=== PATIENT | female | born 1945 | race Caucasian/White ===

== ENCOUNTER 2019-05-04 14:55 | Emergency (ER) | payer MEDICARE, BC ==
[~2019-05-04] VITALS: Ht 160 cm; Wt 64.9 kg
[2019-05-04] MEDS ORDERED: SUBVENITE200 MG PO (15:58)
[2019-05-04] MEDS ORDERED: FURO40 (15:58)
[2019-05-04] MEDS ORDERED: Zantac150 MG PO (15:58)
[2019-05-04] MEDS ORDERED: Potassium Chlo20 ME1 PO (15:58)
[2019-05-04] MEDS ORDERED: HYDCHL25 PO (15:58)
[2019-05-04] MEDS ORDERED: LOSARTAN POTAS100 MG PO (15:59)
[2019-05-04] MEDS ORDERED: LEVO-T112 MCG PO (15:59)
[2019-05-04] MEDS ORDERED: ATORVASTATIN CA40 MG PO (15:59)
[2019-05-04] MEDS ORDERED: IRBESARTAN300 MG PO (15:59)
[2019-05-04] MEDS ORDERED: ZONI100 (15:59)
[2019-05-04] MEDS ORDERED: Nifediac Cc60 MG PO (15:59)
[2019-05-04] MEDS ORDERED: TEMA30 PO (15:59)
== END 2019-05-04 17:28 | disposition home or self-care (01) ==
LOC: ER 14:55
DX: I10 Essential (primary) hypertension (principal); Z79.899 Other long term (current) drug therapy
CPT/HCPCS: 36415; 71046; 83880; 85025; 93005; 93010; 99283-25

== ENCOUNTER 2020-02-16 11:11 | Day surgery (SDC) | payer MEDICARE, BC ==
[~2020-02-16] VITALS: Ht 157.5 cm; Wt 62.0 kg
[~2020-02-16 11:11] MED LIST: ATORVASTATIN CA40 MG PO; CARV6.25 PO; FURO40; HYDCHL25 PO; IRBESARTAN300 MG PO; LEVO-T112 MCG PO; LOSARTAN POTAS100 MG PO; Nifediac Cc60 MG PO; Potassium Chlo20 ME1 PO; SUBVENITE200 MG PO; TEMA30 PO; ZONI100; Zantac150 MG PO
--- NOTE | 2020-02-16 11:53 | NUR ---
02/16/20 1153 GISELE MOONEY ONE ATTEMPT BY TRAVIS IN RW HIT A VALVE ONE SUCCEFUL IN RH BY TRAVIS PT TOW
[2020-03-28] MEDS ORDERED: FUROSEMIDE40 MG PO (17:04)
[2020-03-28] MEDS ORDERED: ZONI100 PO (17:04)
[2020-03-28] MEDS ORDERED: Temazepam30 MG PO (17:05)
[2020-03-28] MEDS ORDERED: LAMICTAL200 MG PO (17:05)
[2020-03-28] MEDS ORDERED: DYAZIDE 37.5-21 EACH PO (17:06)
[2020-03-28] MEDS ORDERED: SPIRONOLACTONE25 MG PO (17:06)
[2020-03-28] MEDS ORDERED: ATOR40TA PO (17:06)
[2020-03-28] MEDS ORDERED: Vitamin D2000 UNIT PO (17:08)
[2020-03-28] MEDS ORDERED: ATOR20 PO (21:14)
[2020-03-28] MEDS ORDERED: OMEP20ER PO (21:16)
[2020-03-29] MEDS ORDERED: NAPR500 PO (08:52)
[2020-03-29] MEDS ORDERED: CYCL10 PO (08:53)
[2020-03-29] MEDS ORDERED: ONDA4ODT MM (08:55)
[2020-03-29] MEDS ORDERED: CARV6.25 PO (09:00)
[2020-03-29] MEDS ORDERED: Isosorbide Mono30 MG PO (09:01)
[2020-03-29] MEDS ORDERED: SPIR25 PO (09:02)
[2020-03-29] MEDS ORDERED: IRON PO (09:08)
[2020-03-29] MEDS ORDERED: OMEP20ER PO (09:11)
[2020-03-29] MEDS ORDERED: TRAM50 PO (12:42)
[2020-04-01] MEDS ORDERED: PANT40 PO (11:49)
[2020-04-01] MEDS ORDERED: OXYC1L PO (11:52)
[2020-04-01] MEDS ORDERED: LOSA25 PO (11:53)
[2020-04-01] MEDS ORDERED: ATOR80 PO (11:53)
[2020-04-01] MEDS ORDERED: SENN187 PO (11:54)
[2020-04-01] MEDS ORDERED: SUCR1 PO (11:54)
[2020-04-01] MEDS ORDERED: COLACE100 MG PO (11:54)
== END 2020-02-16 14:16 | disposition home or self-care (01) ==
LOC: ORSCSDS 11:11
PROVIDERS: Student in an Organized Health Care Education/Training Program
PROC: 0DB98ZX Excision of Duodenum, Via Natural or Artificial Opening Endoscopic, Diagnostic (ICD-10-PCS; principal; 2020-02-16 13:45)
PROC: 0DB58ZX Excision of Esophagus, Via Natural or Artificial Opening Endoscopic, Diagnostic (ICD-10-PCS; principal; 2020-02-16 13:45)
PROC: 0W3P8ZZ Control Bleeding in Gastrointestinal Tract, Via Natural or Artificial Opening Endoscopic (ICD-10-PCS; principal; 2020-02-16 13:45)
PROC: 0DB68ZX Excision of Stomach, Via Natural or Artificial Opening Endoscopic, Diagnostic (ICD-10-PCS; principal; 2020-02-16 13:45)
DX: D64.9 Anemia, unspecified (principal); K25.4 Chronic or unspecified gastric ulcer with hemorrhage; R10.13 Epigastric pain; I10 Essential (primary) hypertension; Z87.11 Personal history of peptic ulcer disease; E03.9 Hypothyroidism, unspecified; G40.909 Epilepsy, unspecified, not intractable, without status epilepticus; Z79.899 Other long term (current) drug therapy; K44.9 Diaphragmatic hernia without obstruction or gangrene
CPT/HCPCS: 88305; 88341; 88342; J0171; J2250; J2704; J7120

== ENCOUNTER 2020-05-30 10:45 | Emergency (ER) | payer MEDICARE, BC ==
[~2020-05-30] VITALS: Ht 160 cm; Wt 58.5 kg
[~2020-05-30 10:45] MED LIST changes: +ATOR20 PO; +ATOR40TA PO; +ATOR80 PO; +COLACE100 MG PO; +CYCL10 PO; +DYAZIDE 37.5-21 EACH PO; +FUROSEMIDE40 MG PO; +IRON PO; +Isosorbide Mono30 MG PO; +LAMICTAL200 MG PO; +LOSA25 PO; +NAPR500 PO; +OMEP20ER PO; +ONDA4ODT MM; +OXYC1L PO; +PANT40 PO; +SENN187 PO; +SPIR25 PO; +SPIRONOLACTONE25 MG PO; +SUCR1 PO; +TRAM50 PO; +Temazepam30 MG PO; +Vitamin D2000 UNIT PO; +ZONI100 PO
[2020-05-30] MEDS ORDERED: POTA20LUD PO (11:28)
[2020-05-30] MEDS ORDERED: Voltaren100 GM TOP (13:19)
[2020-05-30] MEDS ORDERED: Percocet 5-3251 EACH PO (13:24)
[2020-05-30] MEDS ORDERED: DOC250 PO (13:24)
== END 2020-05-30 14:05 | disposition home or self-care (01) ==
LOC: ER 10:45
DX: M79.652 Pain in left thigh (principal); I10 Essential (primary) hypertension; Z88.8 Allergy status to other drugs, medicaments and biological substances; Z88.5 Allergy status to narcotic agent; Z79.899 Other long term (current) drug therapy; W01.0XXA Fall on same level from slipping, tripping and stumbling without subsequent striking against object, initial encounter
CPT/HCPCS: 72192; 93971; 99283-25; A9270-GY

== ENCOUNTER 2021-02-26 05:28 | Inpatient (IN) | payer MEDICARE, BC ==
[~2021-02-26] VITALS: Ht 157.5 cm; Wt 61.5 kg
[~2021-02-26 05:28] MED LIST changes: +DOC250 PO; +FEROSUL325 M1 PO; -IRON PO; +NORCO 7.5-3251 EAC3 PO; +POTA20LUD PO; +Percocet 5-3251 EACH PO; +Voltaren100 GM TOP
[2021-02-26 05:58] LABS: Mean Corpuscular HGB 26.9 pg (26.0-34.0); Mean Corpuscular HGB Conc 30.5 g/dL (31.5-36.5); Mean Corpuscular Volume 88 fL (80-100); Mean Platelet Volume 9.3 fL (9.1-12.4); Platelet Count 272 K/mm3 (150-400); RDW Coefficient Variation 20.1 % (11.7-14.2); RDW Standard Deviation 62.2 fL (35.1-46.3); Red Blood Cell Count 1.86 M/mm3 (3.80-5.20); White Blood Cell Count 10.69 K/mm3 (4.00-11.30)
[2021-02-26 05:59] LABS: BASOPHILS ABSOLUTE AUTO 0.01 K/mm3 (0.00-0.23); BASOPHILS PERCENT AUTO 0 % (0-2); EOSINOPHILS ABSOLUTE AUTO 0.03 K/mm3 (0.00-0.68); EOSINOPHILS PERCENT AUTO 0 % (0-6); IMMATURE GRAN PERCENT AUTO 4 % (0-1); LYMPHOCYTES PERCENT AUTO 14 % (21-46); MONOCYTES ABSOLUTE AUTO 0.41 K/mm3 (0.16-1.47); MONOCYTES PERCENT AUTO 4 % (4-13); NEUTROPHILS ABSOLUTE AUTO 8.21 K/mm3 (1.96-9.15); NEUTROPHILS PERCENT AUTO 78 % (41-73); NRBC ABSOLUTE 0.06 K/mm3 (0.00-0.02); NRBC Auto 0.6 /100 WBC (0.0-0.2)
[2021-02-26 06:02] LABS: Hematocrit 16.4 % (33.0-51.0)
[2021-02-26 06:03] LABS: Source, Urine Catheter
[2021-02-26 06:14] LABS: Appearance, Urine Clear (Clear); Bilirubin, Urine Neg (Neg); Blood, Urine Neg (Neg); Color, Urine Yellow (P-Yellow); Glucose Qualitative, Urine Neg (Neg); Ketones, Urine Neg (Neg); Leukocyte Esterase, Urine Neg (Neg); Nitrite, Urine Neg (Neg); Protein, Urine 1+ (Neg); Specific Gravity, Urine 1.015 (1.003-1.022); Urobilinogen, Urine NORM (Normal)
[2021-02-26 06:31] LABS: Albumin, Blood 1.8 g/dL (3.4-5.0); Albumin/Globulin Ratio 0.6 (0.8-1.8); Bilirubin, Total 0.6 mg/dL (0.1-1.0); Bun/Creatinine Ratio 16.1 (12.0-20.0); Calcium, Blood 8.1 mg/dL (8.5-10.1); Creatinine, Blood 1.43 mg/dL (0.40-1.00); Globulin, Blood 2.9 g/dL (2.2-4.0); Potassium, Blood 3.9 mmol/L (3.5-5.5); Total Protein, Blood 4.7 g/dL (6.4-8.2); Troponin I 0.495 ng/mL (0.000-0.040)
[2021-02-26] MEDS ORDERED: DOCU100 PO ×2 (06:35→13:51)
[2021-02-26] MEDS ORDERED: Acetaminophen325 M1 PO (08:55)
[2021-02-26] MEDS ORDERED: Fleet Enema132 ML PR (08:56)
[2021-02-26] MEDS ORDERED: Norco 5-325 Ta1 EACH PO (08:56)
[2021-02-26] MEDS ORDERED: ENOX40I SC (08:57)
--- NOTE | 2021-02-26 13:38 | NUR ---
INITIAL ASSESSMENT: REPORT RECIEVED FROM [facility] ED RN. PT ARRIVED TO PCU 2 VIA GURNEY, SHE WAS SLID OVER TO THE BED WITH 4 PEOPLE AND A SLIDER SHEET. PT IS CONFUSED, BUT EASILY REORIENTED. PT REPORTS 5/10 RIGHT HIP PAIN, SHE IS REFUSING PAIN MEDICATIONS AT THIS TIME. HRR, SR IN THE 90S PER TELEMETRY. PT HAS SOME FINE CRACKLES IN HER BASES, BIOX LOW 90S ON RA. BT+. ATTENDS IN PLACE. PPP. PT HAS TRACE PITTING EDEMA TO RLE. VSS. AT BEDSIDE TO ASSIST WITH ADMISSION HX AND MEDICATION RECONCILATION. PT HAS INCISION FROM HIP PINNING TO RIGHT HIP, 3M DRESSING IN PLACE WITH A MODERATE AMOUNT OF SERRO SANG DRAINAGE ON IT AND THE ELLIS PAD UNDERNEATH HER. DRESSING CHANGED AND AQUACEL PLACED. PT AND ORIENTED TO ROOM AND CALL LIGHT, WILL CONTINUE TO MONITOR.
[2021-02-26] MEDS ORDERED: Acetaminophen650 M1 PO (13:50)
[2021-02-26] MEDS ORDERED: THERA-D2000 UNIT PO (13:55)
[2021-02-26 15:16] LABS: Hematocrit 25.8 % (33.0-51.0); Hemoglobin 8.4 g/dL (11.5-16.0)
[2021-02-26 15:37] LABS: International Normalized Ratio 1.22
--- NOTE | 2021-02-26 16:00 | NUR ---
PTS TROPONIN CAME BACK AT 17.0, LEASE OUT WORKER CRISTA AWARE. SEE NEW ORDERS. PT DENIES CP OR SOB AT THIS TIME, NO CHANGES ON TELEMETRY, WILL CONTINUE TO MONITOR.
--- NOTE | 2021-02-26 17:00 | NUR ---
KRYSTAL TOBIN AT BEDSIDE TO DISCUSS CODE STATUS WITH AND PTS CURRENT DISEASE PROCESS. PTS WOULD LIKE TO DISCUSS THIS WITH FAMILY BEFORE MAKING A DECISION. ROAD OILING TRUCK DRIVER AT BEDSIDE. PT HAS BEEN RESTLESS. BLADDER SCAN DONE DUE TO PATIENT NOT VOIDING YET, GREATER THAN 600CC. ASSISTED PT OOB TO THE BSC WITH PIVOT TRANSFER. PT WAS UNABLE TO VIOD. PT ASSISTED BACK TO BED. SOLIMAN PLACED PER MD ORDERS. UA SENT.
[2021-02-26 18:42] LABS: Source, Urine Catheter
[2021-02-26 18:50] LABS: Appearance, Urine Clear (Clear); Bilirubin, Urine Neg (Neg); Blood, Urine 1+ (Neg); Color, Urine Yellow (P-Yellow); Glucose Qualitative, Urine Neg (Neg); Ketones, Urine 1+ (Neg); Leukocyte Esterase, Urine 2+ (Neg); Nitrite, Urine Neg (Neg); Protein, Urine 2+ (Neg); Urobilinogen, Urine NORM (Normal); pH, Urine 6.5 (5.0-8.0)
[2021-02-26 19:06] LABS: Bacteria Mod /hpf; Red Blood Cells, Urine 0-2 /hpf (0-2); Squamous Epithelial Cells Few /hpf (Few)
--- NOTE | 2021-02-26 20:07 | NUR ---
PT ADMITTED FOR ANEMIA AND BLOOD LOSS. H/H IMPROVED TO 8/25 AFTER 2 UNITS PRBCS. RECENT RIGHT HIP FX WITH PINNING, DRESSING CHANGED. DR. DEL RIO CAME TO SEE THE PATIENT, SAID THE HIP LOOKS GOOD AND SHE CAN FOLLOW UP WITH DR. HEWITT AN OUTPATIENT SCHEDULED IF SHE'S OUT OF THE HOSPITAL IN TIME. PTS TROPONIN IS ELEVATED AT 17, PLAN FOR MEDICAL MANAGEMENT UNTIL PT IS MORE STABLE. GI HAS BEEN CONSULTED, NO PLANS FOR SCOPE AT THIS TIME. VSS. SOLIMAN PLACED FOR URINARY RETENTION. PT IS RESTING COMFORTABLY AT THIS TIME. CALL LIGHT IN REACH. BED ALARM ON FOR SAFETY.
[2021-02-26 21:13] LABS: Hematocrit 24.9 % (33.0-51.0); Hemoglobin 8.1 g/dL (11.5-16.0)
[2021-02-27 04:14] LABS: Hematocrit 23.8 % (33.0-51.0); Hemoglobin 7.6 g/dL (11.5-16.0); Mean Corpuscular HGB Conc 31.9 g/dL (31.5-36.5); Mean Corpuscular Volume 88 fL (80-100); Mean Platelet Volume 9.7 fL (9.1-12.4); NRBC Auto 1.1 /100 WBC (0.0-0.2); Platelet Count 240 K/mm3 (150-400); RDW Coefficient Variation 17.6 % (11.7-14.2); RDW Standard Deviation 53.4 fL (35.1-46.3); Red Blood Cell Count 2.71 M/mm3 (3.80-5.20)
[2021-02-27 04:38] LABS: Albumin, Blood 1.8 g/dL (3.4-5.0); Albumin/Globulin Ratio 0.7 (0.8-1.8); Bilirubin, Total 0.8 mg/dL (0.1-1.0); Bun/Creatinine Ratio 14.8 (12.0-20.0); Creatinine, Blood 1.15 mg/dL (0.40-1.00); Globulin, Blood 2.7 g/dL (2.2-4.0); Magnesium, Blood 2.2 mg/dL (1.6-2.4); Potassium, Blood 3.6 mmol/L (3.5-5.5); Total Protein, Blood 4.5 g/dL (6.4-8.2)
[2021-02-27 05:27] LABS: BASOPHILS PERCENT MAN 0 % (0-2); EOSINOPHILS PERCENT MAN 0 % (0-6); TOTAL CELLS COUNTED 100
--- NOTE | 2021-02-27 05:27 | NUR ---
SHIFT SUMMARY ASSUMED CARE OF PT AT 1900. PT IS A/OX1. HEART SOUNDS IRREGULAR, TELE SHOUS SINUS @ 96. LUNG SOUNDS CLEAR. PT HAS A SOLIMAN CATHETER DRAINING WITH CLEAR YELLOW URINE. PT L HIP DRESSING HAS A SMALL AMOUNT OF DARK COLORING SHOWING THROUGH THAT HAS GROWN TO ABOUT A QURTER SIZE IN TWO PLACES. PT DENIES PAIN. PT SELT T/O THE NIGHT. CALL LIGHT IN REACH, BED IN LOWEST POSTION, BED ALARM ON.
[2021-02-27 05:29] LABS: LYMPHOCYTES ABSOLUTE MAN 0.27 K/mm3 (0.84-5.20); LYMPHOCYTES PERCENT MAN 3 % (21-46); MONOCYTES ABSOLUTE MAN 0.18 K/mm3 (0.16-1.47); MONOCYTES PERCENT MAN 2 % (4-13); MYELOCYTE ABSOLUTE MAN 0.27 K/mm3 (0.00-0.00); MYELOCYTE PERCENT MAN 3 % (0-0); NEUTROPHILS ABSOLUTE MAN 8.46 K/mm3 (1.96-9.15); SEG NEUTROPHILS PERCENT MAN 92 % (41-73)
--- NOTE | 2021-02-27 10:11 | NUR ---
pt c/o sharp pain localized on right lower anterior rib cage. States worse with inspiration and with moving around. Given Fentanyl for pain, which helped until she was needing to roll back and forth in bed for linen change and pericare, then it was hurting again. States still worse with inspiration and with activity. States 6/10.
--- NOTE | 2021-02-27 12:46 | NUR ---
Reported to Dr. Chapman the pt's c/o sharp pain on the right anterior lower rib cage. No new orders. Pt tele dc'd and status changed to surgical.
[2021-02-27 14:08] LABS: Stool Occult Blood Guaiac 1 Neg (Neg)
--- NOTE | 2021-02-27 14:34 | NUR ---
Call to pharmacy to inquire about missing IV Ferr which is still undelivered. Telephone report to Sis in surgical unit. Pt will be transferring to room 210 this afternoon.
--- NOTE | 2021-02-27 15:36 | NUR ---
TRANSFER PT TRANSFERRED TO ROOM 210 FROM PCU. PT IS A/O X3-4 AT THIS TIME. BED ALARM PLACED FOR SAFETY. PT TRANSFERRED WTIH STAND-PIVOT FROM WHEELCHAIR TO BED USING GAIT BELT. SIGNIFICANT OTHER AT BEDSIDE. PALLIATIVE CARE AT BEDSIDE TO SPEAK WITH PT AND S.O. CALL LIGHT GIVEN TO PT.
--- NOTE | 2021-02-27 15:50 | NUR ---
Pt resting in bed upon arrival. Pt is A&OX3. Pt still struggling remembering reason for coming to the hospital. Pt reports mild to moderate pain in her right lower ribs. SO Antwon is at bedside and reports Pt having some broken ribs from a previous fall. Pt reports mild dyspnea due to inability to take deep breaths due to the pain. Pt denies anxiety at this time. Engaged in therapeutic discussion regarding code status. Educated on life sustaining treatments including risk factors and implications of CPR. Offered therapeutic listening and answered questions. Pt reports not wanting CPR or intubation. She reports if her heart stops she would prefer to go naturally. SO Antwon is in agreement with Pt's decision. RN Rozina in to insert PICC and this RN ended visit. Pt agreeable for continued PC visits. Spoke with Dr Chapman and discussed case. Changed Pt's code status to DNR per V/O from Dr Chapman. Palliative Care will remain available for supportive visits.
--- NOTE | 2021-02-27 18:03 | NUR ---
SHIFT SUMMARY PT TRANSFERRED TO THIS UNIT THIS AFTERNOON. SHE HAS BEEN A/O X4, STAND-PIVOT TO TRANSFER. POWERGLIDE WAS PLACED THIS AFTERNOON IN LEFT ARM. AQUACEL DRESSINGS TO RECENT SURGICAL SITE ON HIP DRY AND INTACT; SM AMT DRY DRAINAGE ON DRESSINGS. BED ALARM ON FOR ADDITIONAL SAFETY AND CALL LIGHT IN REACH.
[2021-02-28 05:18] LABS: BASOPHILS ABSOLUTE AUTO 0.04 K/mm3 (0.00-0.23); BASOPHILS PERCENT AUTO 0 % (0-2); EOSINOPHILS ABSOLUTE AUTO 0.08 K/mm3 (0.00-0.68); EOSINOPHILS PERCENT AUTO 1 % (0-6); Hematocrit 27.1 % (33.0-51.0); Hemoglobin 8.5 g/dL (11.5-16.0); IMMATURE GRAN ABSOLUTE AUTO 0.51 K/mm3 (0.00-0.10); IMMATURE GRAN PERCENT AUTO 5 % (0-1); LYMPHOCYTES ABSOLUTE AUTO 1.02 K/mm3 (0.84-5.20); LYMPHOCYTES PERCENT AUTO 11 % (21-46); MONOCYTES ABSOLUTE AUTO 0.46 K/mm3 (0.16-1.47); MONOCYTES PERCENT AUTO 5 % (4-13); Mean Corpuscular HGB 27.8 pg (26.0-34.0); Mean Corpuscular HGB Conc 31.4 g/dL (31.5-36.5); Mean Corpuscular Volume 89 fL (80-100); Mean Platelet Volume 9.1 fL (9.1-12.4); NEUTROPHILS ABSOLUTE AUTO 7.42 K/mm3 (1.96-9.15); NEUTROPHILS PERCENT AUTO 78 % (41-73); NRBC ABSOLUTE 0.04 K/mm3 (0.00-0.02); NRBC Auto 0.4 /100 WBC (0.0-0.2); Platelet Count 290 K/mm3 (150-400); RDW Coefficient Variation 18.1 % (11.7-14.2); RDW Standard Deviation 55.9 fL (35.1-46.3); Red Blood Cell Count 3.06 M/mm3 (3.80-5.20); White Blood Cell Count 9.53 K/mm3 (4.00-11.30)
[2021-02-28 05:39] LABS: BAND PERCENT MAN 1 % (0-8); BASOPHILS PERCENT MAN 0 % (0-2); EOSINOPHILS PERCENT MAN 0 % (0-6); LYMPHOCYTES ABSOLUTE MAN 1.14 K/mm3 (0.84-5.20); LYMPHOCYTES PERCENT MAN 12 % (21-46); METAMYELOCYTE ABSOLUTE MAN 0.38 K/mm3 (0.00-0.00); METAMYELOCYTE PERCENT MAN 4 % (0-0); MONOCYTES ABSOLUTE MAN 0.19 K/mm3 (0.16-1.47); MONOCYTES PERCENT MAN 2 % (4-13); MYELOCYTE ABSOLUTE MAN 0.09 K/mm3 (0.00-0.00); MYELOCYTE PERCENT MAN 1 % (0-0); NEUTROPHILS ABSOLUTE MAN 7.71 K/mm3 (1.96-9.15); SEG NEUTROPHILS PERCENT MAN 80 % (41-73); TOTAL CELLS COUNTED 100
[2021-02-28 05:59] LABS: Bun/Creatinine Ratio 12.7 (12.0-20.0); Calcium, Blood 8.1 mg/dL (8.5-10.1); Creatinine, Blood 1.18 mg/dL (0.40-1.00); Magnesium, Blood 1.9 mg/dL (1.6-2.4); Potassium, Blood 3.2 mmol/L (3.5-5.5); Thyroid Stimulating Hormone 19.3 uIU/mL (0.360-4.800)
--- NOTE | 2021-02-28 06:39 | NUR ---
PT A/OX4. VSS ON RA. PAIN MANAGED WELL W/ CURRENT PAIN MED REGIME AND ICE PACK. PT VOIDING WELL SINCE SOLIMAN REMOVAL. DENIES CHEST PAIN, SOB, N/V. SLEEPING B/W CARE. USING CALL LIGHT TO MAKE NEEDS KNOWN.
--- NOTE | 2021-02-28 10:26 | NUR ---
Supportive Visit Pt resting in bed upon arrival. Pt denies pain and dyspnea at this time. Offered therapeutic listening as Pt discusses her decision to be a DNR. Pt appears at peace with this decision. Pt reports no concerns at this time. Spoke with Pt's Primary RN Sis and discussed case. No concerns reported at this time. Palliative Care will remain available.
--- NOTE | 2021-02-28 16:56 | NUR ---
SHIFT SUMMARY PT HAS BEEN A/O X4, VERY PLEASANT AND COOPERATIVE. PT WORKED WITH THERAPY TODAY AND WAS ABLE TO AMBULATE 20 FEET WITH FWW AND GAIT BELT. SHE HAS BEEN SITTING UP IN CHAIR FOR MEALS WELL. AQUACEL DRESSING ON R HIP FROM PREVIOUS SURGERY WNL. PLAN IS TO HAVE ANOTHER DOSE OF IV IRON TOMORROW THEN POSSIBLY DC. NO ACUTE CHANGES THIS SHIFT.
--- NOTE | 2021-03-01 04:02 | NUR ---
PT A/OX4. VSS ON RA. DENIES PAIN. MELATONIN GIVEN FOR INSOMNIA. DENIES CP/PRESSURE. SLEEPING B/W CARE. USING CALL LIGHT TO MAKE NEEDS KNOW. UP TO TOILET FWW.
[2021-03-01 04:49] LABS: Bun/Creatinine Ratio 10.3 (12.0-20.0); Calcium, Blood 8.5 mg/dL (8.5-10.1); Creatinine, Blood 1.26 mg/dL (0.40-1.00); Potassium, Blood 3.9 mmol/L (3.5-5.5)
--- NOTE | 2021-03-01 07:04 | NUR ---
pt laying in bed stated she has no abd pain feeling better still pale pt got a call on the phone
[2021-03-01] MEDS ORDERED: LEVSOD137 PO (09:40)
[2021-03-01] MEDS ORDERED: LOSA25 PO (09:41)
[2021-03-01] MEDS ORDERED: FAMO20 PO (09:42)
[2021-03-01] MEDS ORDERED: MELA3 PO (09:43)
[2021-03-01] MEDS ORDERED: SPIR25 PO (09:44)
[2021-03-01] MEDS ORDERED: METO25ER PO (09:44)
[2021-03-01] MEDS ORDERED: TORSE20 PO (09:45)
--- NOTE | 2021-03-01 10:26 | NUR ---
rx called to [facility] [place] burrows by to see pt ok to go aneta guthrie after the iv iron at 1200
--- NOTE | 2021-03-01 12:49 | NUR ---
discharge instructions reviewed with pt verbalized rx pt waiting for a ride no acute changes iv iron complete rx called [facility]
--- NOTE | 2021-03-01 14:30 | NUR ---
WC ESCORT TO CAR NO ACUTE CHANGES TO COND
--- NOTE | 2021-03-01 15:46 | NUR ---
pt's s/o called his name is socrates nagel a pt/ot h/h order stated he had difficulty getting her into the house called and left a messgae with sandip arrieta
[2021-03-06] MEDS ORDERED: TEMA30 PO (10:55)
== END 2021-03-01 14:15 | disposition home or self-care (01) | DRG 811 ==
LOC: ER 05:28 → ERHOLD 09:33 → PCU 09:33 → SURS 02-27 14:56
PROVIDERS: Emergency Medicine; Internal Medicine; Internal Medicine Cardiovascular Disease; Nurse Practitioner Acute Care; ADMIT Hospitalist
PROC: 30233N1 Transfusion of Nonautologous Red Blood Cells into Peripheral Vein, Percutaneous Approach (ICD-10-PCS; principal; 2021-02-26)
DX: D62 Acute posthemorrhagic anemia (principal); G92 Toxic encephalopathy; I21.4 Non-ST elevation (NSTEMI) myocardial infarction; Z96.641 Presence of right artificial hip joint; D50.9 Iron deficiency anemia, unspecified; I25.10 Atherosclerotic heart disease of native coronary artery without angina pectoris; I27.20 Pulmonary hypertension, unspecified; I35.0 Nonrheumatic aortic (valve) stenosis; N18.30 Chronic kidney disease, stage 3 unspecified; G40.909 Epilepsy, unspecified, not intractable, without status epilepticus; B34.9 Viral infection, unspecified; E03.9 Hypothyroidism, unspecified; E78.5 Hyperlipidemia, unspecified; K21.9 Gastro-esophageal reflux disease without esophagitis; Z90.49 Acquired absence of other specified parts of digestive tract; Z98.890 Other specified postprocedural states; Z79.899 Other long term (current) drug therapy; Z88.5 Allergy status to narcotic agent; Z88.8 Allergy status to other drugs, medicaments and biological substances
CPT/HCPCS: 36415; 36430; 51701; 51702; 70450; 71045; 73700; 73706; 80048; 80053; 81001; 82272; 82607; 82746; 83010; 83605; 83735; 83880; 84439; 84443; 84484; 85014; 85018; 85025; 85610; 85730; 86850; 86870; 86900; 86901; 86922; 87077; 87086; 87186; 93005; 93010; 93306; 94760; 96374; 97110; 97116; 97162; 97530; 99285-25; A9270; C1751; C9113; J2916; J3010; J3475; J7030; P9016; Q9967

== ENCOUNTER 2021-03-06 10:23 | Inpatient (IN) | payer MEDICARE, BC ==
[~2021-03-06] VITALS: Ht 157.5 cm; Wt 60.8 kg
[~2021-03-06 10:23] MED LIST changes: +Acetaminophen325 M1 PO; +Acetaminophen650 M1 PO; +DOCU100 PO; +ENOX40I SC; +FAMO20 PO; +Fleet Enema132 ML PR; +LEVSOD137 PO; +MELA3 PO; +METO25ER PO; +Norco 5-325 Ta1 EACH PO; +THERA-D2000 UNIT PO; +TORSE20 PO
[2021-03-06] MEDS ORDERED: TEMA30 PO ×2 (10:55)
[2021-03-06 12:18] LABS: BASOPHILS ABSOLUTE AUTO 0.04 K/mm3 (0.00-0.23); BASOPHILS PERCENT AUTO 1 % (0-2); EOSINOPHILS ABSOLUTE AUTO 0.04 K/mm3 (0.00-0.68); EOSINOPHILS PERCENT AUTO 1 % (0-6); Hematocrit 28.2 % (33.0-51.0); Hemoglobin 8.8 g/dL (11.5-16.0); IMMATURE GRAN ABSOLUTE AUTO 0.16 K/mm3 (0.00-0.10); IMMATURE GRAN PERCENT AUTO 2 % (0-1); LYMPHOCYTES ABSOLUTE AUTO 1.41 K/mm3 (0.84-5.20); LYMPHOCYTES PERCENT AUTO 19 % (21-46); MONOCYTES ABSOLUTE AUTO 0.52 K/mm3 (0.16-1.47); MONOCYTES PERCENT AUTO 7 % (4-13); Mean Corpuscular HGB 29.1 pg (26.0-34.0); Mean Corpuscular HGB Conc 31.2 g/dL (31.5-36.5); Mean Corpuscular Volume 93 fL (80-100); Mean Platelet Volume 9.3 fL (9.1-12.4); NEUTROPHILS ABSOLUTE AUTO 5.27 K/mm3 (1.96-9.15); NEUTROPHILS PERCENT AUTO 71 % (41-73); Platelet Count 312 K/mm3 (150-400); RDW Standard Deviation 74.1 fL (35.1-46.3); Red Blood Cell Count 3.02 M/mm3 (3.80-5.20); White Blood Cell Count 7.44 K/mm3 (4.00-11.30)
[2021-03-06 12:43] LABS: C-REACTIVE PROTEIN, EXT RANGE 2.1 mg/dL (0.000-0.300); Calcium, Blood 8.6 mg/dL (8.5-10.1); Creatinine, Blood 1.12 mg/dL (0.40-1.00); Potassium, Blood 3.9 mmol/L (3.5-5.5)
[2021-03-06 16:15] LABS: SARS-Cov-2 (COVID-19) PCR, MMC NEGATIVE (NEGATIVE)
--- NOTE | 2021-03-06 17:43 | NUR ---
ARRIVED FROM ED VIA W/C, ASSISTED TO BED, GAUZE 4X4 NOTED ON R HIP, C/D/I, VICK NOTED INTACT, SOME ECCHYMOSIS NOTED AROUND INCISION SITE, C/O PAIN AT INCISION SITE AND RIGHT "RIBS" STATES SHE HAS SOME RIB FX'S FROM HER PREVIOUS FALL, DENIES ANY SOB, PT EATING DINNER, NPO AFTER MN, NO ACUTE CHANGES THIS SHIFT.
[2021-03-07 04:19] LABS: BASOPHILS ABSOLUTE AUTO 0.06 K/mm3 (0.00-0.23); BASOPHILS PERCENT AUTO 1 % (0-2); EOSINOPHILS ABSOLUTE AUTO 0.09 K/mm3 (0.00-0.68); EOSINOPHILS PERCENT AUTO 2 % (0-6); Hemoglobin 8.3 g/dL (11.5-16.0); IMMATURE GRAN ABSOLUTE AUTO 0.09 K/mm3 (0.00-0.10); IMMATURE GRAN PERCENT AUTO 2 % (0-1); LYMPHOCYTES ABSOLUTE AUTO 1.38 K/mm3 (0.84-5.20); LYMPHOCYTES PERCENT AUTO 23 % (21-46); MONOCYTES ABSOLUTE AUTO 0.44 K/mm3 (0.16-1.47); MONOCYTES PERCENT AUTO 7 % (4-13); Mean Corpuscular HGB 28.9 pg (26.0-34.0); Mean Corpuscular HGB Conc 30.7 g/dL (31.5-36.5); Mean Corpuscular Volume 94 fL (80-100); Mean Platelet Volume 8.8 fL (9.1-12.4); NEUTROPHILS ABSOLUTE AUTO 4.05 K/mm3 (1.96-9.15); NEUTROPHILS PERCENT AUTO 66 % (41-73); Platelet Count 276 K/mm3 (150-400); RDW Coefficient Variation 21.6 % (11.7-14.2); RDW Standard Deviation 73.4 fL (35.1-46.3); Red Blood Cell Count 2.87 M/mm3 (3.80-5.20); White Blood Cell Count 6.11 K/mm3 (4.00-11.30)
[2021-03-07 04:33] LABS: International Normalized Ratio 1.02
[2021-03-07 04:52] LABS: Albumin, Blood 1.8 g/dL (3.4-5.0); Albumin/Globulin Ratio 0.6 (0.8-1.8); Bilirubin, Total 0.4 mg/dL (0.1-1.0); Bun/Creatinine Ratio 8.3 (12.0-20.0); Calcium, Blood 8.2 mg/dL (8.5-10.1); Creatinine, Blood 1.08 mg/dL (0.40-1.00); Globulin, Blood 3.2 g/dL (2.2-4.0); Potassium, Blood 3.6 mmol/L (3.5-5.5)
--- NOTE | 2021-03-07 06:05 | NUR ---
PT VSS T/O NIGHT. DRESSING TO RIGHT HIP CHANGED X1 R/T SATURATION; WOUND DRNG SS DRNG. PT REP PAIN BETTER CONTROLLED W/1 OXYCODONE. PT NPO POST MIDNIGHT FOR PLAN FOR I&D TODAY.
--- NOTE | 2021-03-07 17:53 | NUR ---
SUMMARY I&D PROCEDURE CANCELLED TODAY, PT RESCHEDULED FOR TOMORROW, DR. DOHERTY SAW PT THIS EVENING, AMBULATING TO THE BATHROOM, TOLERATING WELL, TAKING OXYCODONE FOR PAIN, REPORTS HAVING ADEQUATE PAIN CONTROL, DRESSING ON R HIP CHANGED ONCE TODAY, DSG APPEARS C/D/I AT THIS TIME, NO ACUTE CHANGES THIS SHIFT.
[2021-03-08 04:57] LABS: Hematocrit 27.6 % (33.0-51.0); Hemoglobin 8.4 g/dL (11.5-16.0); Mean Corpuscular HGB Conc 30.4 g/dL (31.5-36.5); Mean Corpuscular Volume 95 fL (80-100); Mean Platelet Volume 9.1 fL (9.1-12.4); Platelet Count 276 K/mm3 (150-400); RDW Coefficient Variation 21.5 % (11.7-14.2); RDW Standard Deviation 73.5 fL (35.1-46.3); White Blood Cell Count 5.86 K/mm3 (4.00-11.30)
[2021-03-08 05:47] LABS: Albumin, Blood 1.8 g/dL (3.4-5.0); Albumin/Globulin Ratio 0.6 (0.8-1.8); Bilirubin, Total 0.4 mg/dL (0.1-1.0); Bun/Creatinine Ratio 8.4 (12.0-20.0); Calcium, Blood 7.9 mg/dL (8.5-10.1); Creatinine, Blood 1.07 mg/dL (0.40-1.00); Globulin, Blood 3.1 g/dL (2.2-4.0); Percent Saturation 17.5 % (15.0-50.0); Potassium, Blood 3.3 mmol/L (3.5-5.5); Total Protein, Blood 4.9 g/dL (6.4-8.2)
--- NOTE | 2021-03-08 06:40 | NUR ---
PT HAD UNEVENTFUL NIGHT, REP SHE SLEPT BETTER TONIGHT. DRESSING W/SMALL AMT SHADOWING PRESENT THIS AM. PT UP OOB W/1 ASSIST, JENS WELL. PT NPO POST MIDNIGHT FOR PLAN FOR SURGERY TODAY.
--- NOTE | 2021-03-08 11:20 | NUR ---
History, Chart, Medications and Allergies reviewed before start of procedure.Patient confirms NPO status and agrees with scheduled surgery. Pre-Op teaching done. Pt verbalizes understanding.
--- NOTE | 2021-03-08 14:22 | NUR ---
03/08/21 1422 Gloria Vang POSITION: RIGHT SIDE UP. SURGEON AND PA ASSISTED WITH POSITIONING PATIENT IN THE LATERAL POSITION. FINAL POSITIONED CLEARED FOR THE PROCEDURE TO BEGIN.
--- NOTE | 2021-03-08 16:33 | NUR ---
PATIENT CAME BACK FROM PACU TODAY 03/08/21 AT 1600. POD 0 I&D OF RIGHT HIP PATIENT IS DROWSY BUT AWAKENS WITH VERBAL STIMULI AND ANSWERS QUESTIONS APPROPRIATELY. VS ARE WNL AND IS ON RA. PAIN IS MANAGED WITH 1 JALEN PO AT THIS TIME. HER RIGHT HIP HAS GAUZE AND ADHESIVE TAPE OVER THAT IS C/D/I. SHE ALSO HAS A HEMOVAC THAT HAS RED OUTPUT. ACCORDIAN IS COMPRESSED WITH LITTLE OUTPUT IN IT. PATIENT IS ABLE TO WIGGLE FINGERS AND TOES WHEN ASKED. PEDAL PULSES ARE STRONG. SHE IS LAYING IN BED WITH AT BEDSIDE. CALL LIGHT WITHIN REACH. THE PLAN IS TO WORK WITH PT/OT TOMORROW AND TO CONTINUE TO MANAGE PAIN.
--- NOTE | 2021-03-08 19:12 | NUR ---
RECEIVED REPORT AND ASSUMED CARE OF PT. SHE IS LYING QUIETLY IN BED WITH HER EYES CLOSED AND EVEN, UNLABORED RESPIRATIONS. WCTM.
[2021-03-09 03:35] LABS: Hematocrit 26.3 % (33.0-51.0); Hemoglobin 7.9 g/dL (11.5-16.0); Mean Corpuscular HGB 28.8 pg (26.0-34.0); Mean Corpuscular Volume 96 fL (80-100); Mean Platelet Volume 8.6 fL (9.1-12.4); Platelet Count 254 K/mm3 (150-400); RDW Coefficient Variation 21.3 % (11.7-14.2); RDW Standard Deviation 74.1 fL (35.1-46.3); Red Blood Cell Count 2.74 M/mm3 (3.80-5.20); White Blood Cell Count 6.07 K/mm3 (4.00-11.30)
[2021-03-09 03:55] LABS: Albumin, Blood 1.7 g/dL (3.4-5.0); Albumin/Globulin Ratio 0.6 (0.8-1.8); Bilirubin, Total 0.3 mg/dL (0.1-1.0); Bun/Creatinine Ratio 8.6 (12.0-20.0); Calcium, Blood 7.7 mg/dL (8.5-10.1); Creatinine, Blood 1.16 mg/dL (0.40-1.00); Potassium, Blood 3.4 mmol/L (3.5-5.5); Total Protein, Blood 4.7 g/dL (6.4-8.2)
--- NOTE | 2021-03-09 05:22 | NUR ---
SHIFT SUMMARY: JL IS A&OX4. VSS, NO ACUTE EVENTS OVERNIGHT. SHE REPORTS MINIMAL PAIN CONTROL WITH THE ULTRAM, OXYCODONE, AND FENTANYL. BULKY DRSG TO R HIP C/D&I, HEMOVAC PATENT. HGB WITH SMALL DROP FROM 8.4 TO 7.9 AND GFR FROM 50 TO 45. SHE DENIES ANY NEW OR WORSENING SYMPTOMS, STATES THAT HER RIGHT LEG IS FEELING BETTER OVERALL. SHE HAS NOT URINATED THIS SHIFT, STATES THAT SHE URINATED A LARGE AMOUNT JUST BEFORE SHIFT CHANGE, AND THAT SHE DOES NOT TYPICALLY URINATE AT ALL AT NIGHT, USUALLY URINATES 3-4 TIMES DURING THE DAY. SHE IS TOLERATING PO INTAKE WELL. SHE IS LYING IN BED WITH THE CALL LIGHT IN REACH. WILL REPORT TO DAY SHIFT RN.
--- NOTE | 2021-03-09 15:37 | NUR ---
NOTE: DAVID RIDER MET WITH PATIENT AND DISCUSSED HER SURGERY. SHE SHOWED HIM HER THUMB AND HE PUT IN ORDER FOR HAND X-RAY TO RULE OUT FRACTURES/BREAK IN THE HAND. WAITING FOR X-RAY RESULTS.
[2021-03-09 15:39] LABS: Vancomycin, Trough 9.3 ug/mL (5.0-10.0)
--- NOTE | 2021-03-09 18:32 | NUR ---
SHIFT SUMMARY: PATIENT MAINTAINED PAIN RATING OF 5-7 T/O SHIFT. RADIATING PAIN IN THIGH AND ACHING PAIN IN RIBS. AMBULATES TO TOILET AND HAS BEEN IN CHAIR T/O SHIFT. HAS NOT USED CALL LIGHT B/C CONCERNED ABOUT "BOTHERING" US. REMINDED HER WE ARE HERE TO HELP HER GET BETTER SO WE NEED TO KNOW IF THERE'S A PROBLEM. SHE ENJOYS WALDEMAR MIST AND TOLERATES PO WELL. STABLE T/O SHIFT, PLEASANT AFFECT. VISITED THIS AFTERNOON.
--- NOTE | 2021-03-09 19:10 | NUR ---
RECEIVED REPORT AND ASSUMED CARE OF PT. SHE IS SITTING UP IN BED, AWAKE, ALERT AND ORIENTED. SHE REPORTS HER PAIN IS IMPROVING, DENIES ANY NEEDS AT THIS TIME. WCTM.
[2021-03-10 05:34] LABS: Hematocrit 25.4 % (33.0-51.0); Hemoglobin 7.6 g/dL (11.5-16.0); Mean Corpuscular HGB 28.9 pg (26.0-34.0); Mean Corpuscular HGB Conc 29.9 g/dL (31.5-36.5); Mean Corpuscular Volume 97 fL (80-100); Platelet Count 238 K/mm3 (150-400); RDW Coefficient Variation 21.5 % (11.7-14.2); RDW Standard Deviation 75.3 fL (35.1-46.3); Red Blood Cell Count 2.63 M/mm3 (3.80-5.20); White Blood Cell Count 5.82 K/mm3 (4.00-11.30)
--- NOTE | 2021-03-10 05:48 | NUR ---
SHIFT SUMMARY: JL IS A&OX4. VSS, NO ACUTE EVENTS OVERNIGHT. DRESSING TO R HIP C/D&I, HEMOVAC PATENT. SHE REPORTS ADEQUATE PAIN CONTROL WITH 10 MG OF OXYCODONE. SHE HAS DECLINED TO GET UP TO URINATE THIS SHIFT STATING THAT SHE WILL CALL TO GET UP WHEN SHE IS READY. SHE IS LYING IN BED WITH THE CALL LIGHT IN REACH. WILL REPORT TO DAY SHIFT RN.
[2021-03-10 05:53] LABS: Bun/Creatinine Ratio 9.7 (12.0-20.0); Calcium, Blood 7.8 mg/dL (8.5-10.1); Creatinine, Blood 1.13 mg/dL (0.40-1.00)
--- NOTE | 2021-03-10 08:05 | NUR ---
AM ASSESSMENT: PATIENT SLEPT WELL THROUGH THE NIGHT. REPORTED NO PAIN AND HAD GOOD COLOR THIS MORNING. HER LEFT ARM IS MORE SWOLLEN THAN IT WAS THE PREVIOUS DAY SHIFT. PETRA MOISE RN CONFIRMED. THIS IS THE ARM AN IV WAS ATTEMPTED ON PRIOR TO SURGERY, BUT NO IV IS PRESENT. NO PAIN REPORTED
--- NOTE | 2021-03-10 09:16 | NUR ---
AM ASSESSMENT: PATIENT SLEPT WELL THROUGH THE NIGHT. REPORTS NO PAIN THIS AM. ATE BREAKFAST AND HAS BEEN TALKING TO SPOUSE ON THE PHONE. REQUESTED TO REST IN BED AWHILE LONGER.
--- NOTE | 2021-03-10 16:26 | NUR ---
SHIFT SUMMARY: POST-OP DAY 4. PATIENT IS PLEASANT AND COOPERATIVE. HER R UPPER ARM IV INFILTRATED AND HAD TO BE REMOVED. U/S WAS TAKEN OF HER L ARM - THERE IS CLOTTING OF THE PERIPHERAL VEINS BTWN ELBOW AND UPPER ARM, DOES NOT AFFECT BRACHIAL VEINS. SHE HAS BEEN IN HER CHAIR SINCE LUNCH AND HAS AMBULATED TO RESTROOM TWICE WITH THIS NURSE. CEDRICK GIPSON AND GARCIA MEDICALLY CLEARED HER FOR D/C AFTER CONSULT WITH INFECTIOUS DISEASE. PLAN IS TO D/C WITH 6-WEEK ORAL ABX REGIMENT. WILL REPORT TO ONCOMING NURSE.
--- NOTE | 2021-03-10 19:48 | NUR ---
RECEIVED REPORT AND ASSUMED CARE OF PT. SHE IS SITTING UP IN BED, AWAKE, ALERT AND ORIENTED. DENIES ANY NEEDS AT THIS TIME. WCTM.
--- NOTE | 2021-03-10 19:48 | NUR ---
BLOOD ADMINISTRATION NOT STARTED DURING DAY SHIFT, IV INFILTRATED AT 1200 AND UNABLE TO GET NEW IV PLACED UNTIL APPROX 1800. IV ABX STARTED AT THIS TIME. REPORT GIVEN TO ONCOMING RN, WHO PLANS TO ADMINISTER ONCE ABX DONE INFUSING. PT REMAINS ASYMPTOMATIC AND REPORTS NO FEELING OF WEAKNESS OR SHORTNESS OF BREATH. VITALS REMAIN STABLE WITH BP SOFT AT TIMES. AMBULATES WELL WITH NO WEAKNESS, NO INCREASE IN SWELLING SEEN AROUND SURGICAL SITE AND NO NEW BRUISING SEEN.
--- NOTE | 2021-03-11 00:58 | NUR ---
PT FOUND SITTING AT SIDE OF BED WITHOUT GOWN ON, IV LYING ON FLOOR. PT STATED SHE WAS GETTING UP TO GET DRESSED. WHEN ASKED WHERE SHE WAS GOING, SHE STATED SHE DIDN'T KNOW. AFTER CLEANING HER UP AND GETTING HER BACK TO BED SHE WAS ABLE TO STATE WHERE SHE WAS AND WHY SHE WAS ADMITTED. ON-CALL HOSPITALIST CONTACTED D/T DIFFICULTY WITH IV PLACEMENT, NO NEW ORDERS AT THIS TIME. SHE IS LYING IN BED WITH THE CALL LIGHT IN REACH. [place].
--- NOTE | 2021-03-11 01:54 | NUR ---
PT CALLED MULTIPLE TIMES ASKING HIM TO COME GET HER AND TAKE HER HOME. SHE BECAME TEARFUL. THEY REQUESTED THAT HE COME TO STAY AT THE BEDSIDE WITH HER. ER CHECK IN NOTIFIED OF HIS IMPENDING ARRIVAL.
[2021-03-11 05:04] LABS: BASOPHILS ABSOLUTE AUTO 0.03 K/mm3 (0.00-0.23); BASOPHILS PERCENT AUTO 1 % (0-2); EOSINOPHILS ABSOLUTE AUTO 0.03 K/mm3 (0.00-0.68); EOSINOPHILS PERCENT AUTO 1 % (0-6); Hematocrit 26.4 % (33.0-51.0); IMMATURE GRAN ABSOLUTE AUTO 0.02 K/mm3 (0.00-0.10); IMMATURE GRAN PERCENT AUTO 0 % (0-1); LYMPHOCYTES PERCENT AUTO 24 % (21-46); MONOCYTES ABSOLUTE AUTO 0.33 K/mm3 (0.16-1.47); MONOCYTES PERCENT AUTO 7 % (4-13); Mean Corpuscular HGB 28.6 pg (26.0-34.0); Mean Corpuscular HGB Conc 30.3 g/dL (31.5-36.5); Mean Corpuscular Volume 94 fL (80-100); Mean Platelet Volume 8.6 fL (9.1-12.4); NEUTROPHILS ABSOLUTE AUTO 3.04 K/mm3 (1.96-9.15); NEUTROPHILS PERCENT AUTO 67 % (41-73); Platelet Count 215 K/mm3 (150-400); RDW Coefficient Variation 21.2 % (11.7-14.2); RDW Standard Deviation 73.7 fL (35.1-46.3); White Blood Cell Count 4.55 K/mm3 (4.00-11.30)
[2021-03-11 05:24] LABS: Bun/Creatinine Ratio 9.5 (12.0-20.0); Calcium, Blood 8.1 mg/dL (8.5-10.1); Creatinine, Blood 1.16 mg/dL (0.40-1.00); Potassium, Blood 3.6 mmol/L (3.5-5.5)
--- NOTE | 2021-03-11 05:51 | NUR ---
SHIFT SUMMARY: JL AROUSES EASILY AND RESPONDS APPROPRIATELY. SHE HAS BEEN RESTING QUIETLY SINCE HER ARRIVED THIS AM. VSS. DRESSING TO R HIP CHANGED THIS SHIFT. SHE IS A ONE PERSON ASSIST TO THE BATHROOM WITH THE FWW AND GAIT BELT, ATTENDS IN PLACE. SHE IS TOLERATING PO INTAKE WELL, HEMOVAC IN PLACE. IV TO R FA PATENT. SHE IS LYING IN BED WITH THE CALL LIGHT IN REACH. WILL REPORT TO DAY SHIFT RN.
--- NOTE | 2021-03-11 16:58 | NUR ---
ATTEMPTED PICC LINE IN R ARM X3. UNABLE TO CANNULATE VEIN. PTS ARM ARE VERY EDEMATOUS. WILL COME BACK THIS EVENING AND TRY ON L ARM.
--- NOTE | 2021-03-11 17:18 | NUR ---
SHIFT SUMMARY PT HAS BEEN PLEASANT, COOPERATIVE, & UPBEAT TODAY. WORKED W/ PT & OT. HEMOVAC REMOVED THIS AM BY DAVID FARMER. DRSG HAS BEEN CHANGED x 1 DUE TO SMALL AMOUNT OF DRAINAGE FROM OLD DRAIN SITE. ID CONSULT COMPLETED. UNFORTUNATELY, PICC LINE HAS NOT BEEN ABLE TO PLACED. x 1 FAILED ATTEMPT AND PICC RN TO RETURN LATER WHEN AVAILABLE TO PLACE. THEN PLAN TO DC TOMORROW AFTER INFUSIONS SET UP.
[2021-03-12 04:56] LABS: BASOPHILS ABSOLUTE AUTO 0.04 K/mm3 (0.00-0.23); BASOPHILS PERCENT AUTO 1 % (0-2); EOSINOPHILS ABSOLUTE AUTO 0.08 K/mm3 (0.00-0.68); EOSINOPHILS PERCENT AUTO 2 % (0-6); Hematocrit 27.7 % (33.0-51.0); Hemoglobin 8.4 g/dL (11.5-16.0); IMMATURE GRAN ABSOLUTE AUTO 0.05 K/mm3 (0.00-0.10); IMMATURE GRAN PERCENT AUTO 1 % (0-1); LYMPHOCYTES ABSOLUTE AUTO 1.29 K/mm3 (0.84-5.20); LYMPHOCYTES PERCENT AUTO 26 % (21-46); MONOCYTES ABSOLUTE AUTO 0.37 K/mm3 (0.16-1.47); MONOCYTES PERCENT AUTO 7 % (4-13); Mean Corpuscular HGB 28.5 pg (26.0-34.0); Mean Corpuscular HGB Conc 30.3 g/dL (31.5-36.5); Mean Corpuscular Volume 94 fL (80-100); Mean Platelet Volume 8.7 fL (9.1-12.4); NEUTROPHILS PERCENT AUTO 64 % (41-73); Platelet Count 239 K/mm3 (150-400); RDW Coefficient Variation 21.3 % (11.7-14.2); RDW Standard Deviation 72.1 fL (35.1-46.3); Red Blood Cell Count 2.95 M/mm3 (3.80-5.20); White Blood Cell Count 5.03 K/mm3 (4.00-11.30)
[2021-03-12 05:17] LABS: Bun/Creatinine Ratio 8.2 (12.0-20.0); Calcium, Blood 8.1 mg/dL (8.5-10.1); Creatinine, Blood 1.22 mg/dL (0.40-1.00); Potassium, Blood 3.2 mmol/L (3.5-5.5)
--- NOTE | 2021-03-12 07:20 | NUR ---
SUMMARY PT CONT IMPULSIVE REQUIRING BED ALARM FOR SAFETY.PTS R EYELID CONT CRUSTING, BUT DUSTIN BILAT EYES TRACK,MCGEE.STANDS AT BEDSIDE WITH MIMAL ASSIST.IMPROVED MEMORY T/ONIGHT.REMEMBERS THE MONTH YEAR Jacqueline SANTIAGO WITH PREVIOUS CHECKS
--- NOTE | 2021-03-12 07:27 | NUR ---
SUMMARY PT CONFUSED UPON WAKING TONIGHT. PT IS REDIRECTABLE, BUT WITH SOME DIFFICUTLTY.REQUIRES BED ALARM FOR SAFTEY.PT TAKING HER GOWN UOFF ETC.COOPERATVIE WITH STAFF PLACING GOWN BACK ON.
[2021-03-12] MEDS ORDERED: OXYC5 PO ×2 (11:23)
[2021-03-12] MEDS ORDERED: INVANZ IV ×2 (11:23)
--- NOTE | 2021-03-12 14:04 | NUR ---
DRAINAGE FROM PREVIOUS HEMOVAC SITE AFTER DISCUSSING DISCHARGE INSTRUCTIONS, SHOWING WOUND CARE TO , & GETTING PT DRESSED, AMBULATED TO BATHROOM WHERE AFTER SITTING DOWN BLOOD BEGAN COMING OUT OF OLD HEMOVAC SITE. SATURATED 2 PACKS OF 4x4's BEFORE PT WAS ASSITED BACK TO BED WHERE FRESH 4x4's & TAPE WERE PLACED. BLEEDING SLOWED SIGNIFICANTLY. DISCUSSED THIS W/ DR DOHERTY & NEW ORDERS RECEIVED. WILL CALL HOSPITALIST WELL.
--- NOTE | 2021-03-12 17:53 | NUR ---
SHIFT SUMMARY PT'S D/C WAS DELAYED DUE TO BLEEDING. COMPRESSION WRAP APPLIED LATE THIS AFTERNOON. PT CONFUSION CLEARED AFTER ARRIVED. FORGETFUL & SLIGHTLY KOI, BUT MUCH MORE CLEAR. LOOSE STOOLS NOTED. ATTENDS IN PLACE.
--- NOTE | 2021-03-12 18:30 | NUR ---
R LEG REWRAPPED DUE TO BLEED THRU NEW GAUZE, PRESSURE TAPE, AND COMPRESSION WRAP APPLIED.
[2021-03-13 05:58] LABS: BASOPHILS ABSOLUTE AUTO 0.03 K/mm3 (0.00-0.23); BASOPHILS PERCENT AUTO 1 % (0-2); EOSINOPHILS ABSOLUTE AUTO 0.06 K/mm3 (0.00-0.68); EOSINOPHILS PERCENT AUTO 1 % (0-6); Hematocrit 25.5 % (33.0-51.0); Hemoglobin 7.9 g/dL (11.5-16.0); IMMATURE GRAN ABSOLUTE AUTO 0.05 K/mm3 (0.00-0.10); IMMATURE GRAN PERCENT AUTO 1 % (0-1); LYMPHOCYTES PERCENT AUTO 27 % (21-46); MONOCYTES PERCENT AUTO 6 % (4-13); Mean Corpuscular HGB 28.7 pg (26.0-34.0); Mean Corpuscular Volume 93 fL (80-100); Mean Platelet Volume 8.8 fL (9.1-12.4); NEUTROPHILS ABSOLUTE AUTO 3.97 K/mm3 (1.96-9.15); NEUTROPHILS PERCENT AUTO 64 % (41-73); Platelet Count 244 K/mm3 (150-400); RDW Coefficient Variation 21.8 % (11.7-14.2); Red Blood Cell Count 2.75 M/mm3 (3.80-5.20); White Blood Cell Count 6.21 K/mm3 (4.00-11.30)
[2021-03-13 06:17] LABS: Bun/Creatinine Ratio 6.1 (12.0-20.0); Creatinine, Blood 1.31 mg/dL (0.40-1.00); Potassium, Blood 3.3 mmol/L (3.5-5.5)
--- NOTE | 2021-03-13 06:33 | NUR ---
SHIFT SUMMARY: PT HAS DONE WELL THIS SHIFT. DRESSING TO RIGHT HIP HAS REMAINED C/D/I. NO VISIBLE BLEEDING THIS SHIFT. MEDIPORE DRESSING IN PLACE+GAUZE AND PRESSURE TAPE INTACT TO PREVIOUS HEMOVAC SITE. LILIAM WRAP C/D/I. PAIN TOLERABLE THROUGHOUT NIGHT. PT RESTING MOST OF SHIFT. OUT OF BED TO BATHROOM THIS MORNING WITH 1 MINIMAL ASSIST AND FWW+GB. PT HAD 1 SMEAR IN ATTENDS AND ALSO ONE SMALL SOFT BM IN RESTROOM. PT HAS BEEN PLEASANT AND COOPERATIVE.
--- NOTE | 2021-03-13 07:38 | NUR ---
pt confused unable to reorient pt denies pain at this time no breakthru bleeding to dressing bruise to knee elev on pillow
--- NOTE | 2021-03-13 09:53 | NUR ---
PT WORKING WITH PHYSICAL THERAPY PT STATED THAT SHE DOES NOT WANT ANY PAIN MEDS STATED THAT THEY MADE HER CONFUSED AND SHE IS STARTING TO FEEL BETTER
--- NOTE | 2021-03-13 13:11 | NUR ---
discharge instructions reviewed with pt and spouse pt's upper dressing changed sero/sang drainage pt appt made for atc at 0830 for abx therapy
--- NOTE | 2021-03-13 13:25 | NUR ---
wc escort to car no acute changes
[2021-04-12] MEDS ORDERED: HYDR1TAB94 PO (14:20)
== END 2021-03-13 13:20 | disposition home health service (06) | DRG 463 ==
LOC: ER 10:23 → SURS 10:24 → ERHOLD 10:24 → SURS 16:34
PROVIDERS: Emergency Medicine; Internal Medicine; Nurse Practitioner Acute Care; Orthopaedic Surgery; ADMIT Internal Medicine
PROC: 0SP90JZ Removal of Synthetic Substitute from Right Hip Joint, Open Approach (ICD-10-PCS; principal; 2021-03-08 11:30)
DX: T84.51XA Infection and inflammatory reaction due to internal right hip prosthesis, initial encounter (principal); I21.4 Non-ST elevation (NSTEMI) myocardial infarction; I13.0 Hypertensive heart and chronic kidney disease with heart failure and stage 1 through stage 4 chronic kidney disease, or unspecified chronic kidney disease; I50.22 Chronic systolic (congestive) heart failure; I82.612 Acute embolism and thrombosis of superficial veins of left upper extremity; L76.32 Postprocedural hematoma of skin and subcutaneous tissue following other procedure; E03.9 Hypothyroidism, unspecified; G40.909 Epilepsy, unspecified, not intractable, without status epilepticus; E78.5 Hyperlipidemia, unspecified; D50.9 Iron deficiency anemia, unspecified; Z20.822 Contact with and (suspected) exposure to COVID-19; Z66 Do not resuscitate; M81.0 Age-related osteoporosis without current pathological fracture; E87.6 Hypokalemia; N18.30 Chronic kidney disease, stage 3 unspecified; I25.10 Atherosclerotic heart disease of native coronary artery without angina pectoris; I35.0 Nonrheumatic aortic (valve) stenosis; M66.241 Spontaneous rupture of extensor tendons, right hand; B96.20 Unspecified Escherichia coli [E. coli] as the cause of diseases classified elsewhere; B95.1 Streptococcus, group B, as the cause of diseases classified elsewhere; K21.9 Gastro-esophageal reflux disease without esophagitis; Z87.11 Personal history of peptic ulcer disease; Z90.49 Acquired absence of other specified parts of digestive tract; Z98.890 Other specified postprocedural states; Z88.5 Allergy status to narcotic agent; Z88.8 Allergy status to other drugs, medicaments and biological substances; Z79.899 Other long term (current) drug therapy; I25.2 Old myocardial infarction; Y83.1 Surgical operation with implant of artificial internal device as the cause of abnormal reaction of the patient, or of later complication, without mention of misadventure at the time of the procedure
CPT/HCPCS: 36415; 36430; 73130; 73502; 76882; 80048; 80053; 80202; 82728; 83540; 83550; 85025; 85027; 85610; 85651; 86140; 86850; 86900; 86901; 86922; 87070; 87075; 87077; 87102; 87184; 87186; 87205; 93971; 94760; 96365; 96366; 96367; 96375; 96376; 97110; 97110-CQ; 97116; 97116-CQ; 97162; 97165; 97530; 97535; 99285-25; A9270; C1776; G0378; J0690; J1335; J2405; J2543; J2704; J2765; J3010; J3370; J7030; P9016; U0004

== ENCOUNTER 2021-03-14 01:35 | Day surgery (SDC) | payer MEDICARE, BC ==
[~2021-03-14 01:35] MED LIST changes: +INVANZ IV; +OXYC5 PO
[2021-04-12] MEDS ORDERED: HYDR1TAB94 PO (14:20)
== END 2021-03-14 08:34 | disposition home or self-care (01) ==
LOC: ATC 01:35
DX: T84.51XA Infection and inflammatory reaction due to internal right hip prosthesis, initial encounter (principal); I13.0 Hypertensive heart and chronic kidney disease with heart failure and stage 1 through stage 4 chronic kidney disease, or unspecified chronic kidney disease; N18.30 Chronic kidney disease, stage 3 unspecified; I50.22 Chronic systolic (congestive) heart failure; E03.9 Hypothyroidism, unspecified; E78.5 Hyperlipidemia, unspecified; G40.909 Epilepsy, unspecified, not intractable, without status epilepticus; Y79.2 Prosthetic and other implants, materials and accessory orthopedic devices associated with adverse incidents
CPT/HCPCS: 96365; J1335

== ENCOUNTER 2021-03-15 00:17 | Day surgery (SDC) | payer MEDICARE, BC ==
[2021-04-12] MEDS ORDERED: HYDR1TAB94 PO (14:20)
== END 2021-03-15 08:46 | disposition home or self-care (01) ==
LOC: ATC 00:17
DX: T84.51XA Infection and inflammatory reaction due to internal right hip prosthesis, initial encounter (principal); I25.2 Old myocardial infarction; I13.0 Hypertensive heart and chronic kidney disease with heart failure and stage 1 through stage 4 chronic kidney disease, or unspecified chronic kidney disease; N18.30 Chronic kidney disease, stage 3 unspecified; I50.22 Chronic systolic (congestive) heart failure; E03.9 Hypothyroidism, unspecified; G40.909 Epilepsy, unspecified, not intractable, without status epilepticus; E78.5 Hyperlipidemia, unspecified; K21.9 Gastro-esophageal reflux disease without esophagitis; Z96.641 Presence of right artificial hip joint; Z88.5 Allergy status to narcotic agent; Z88.8 Allergy status to other drugs, medicaments and biological substances; Z66 Do not resuscitate
CPT/HCPCS: 96365; J1335

== ENCOUNTER 2021-03-16 08:45 | Day surgery (SDC) | payer MEDICARE, BC ==
[2021-04-12] MEDS ORDERED: HYDR1TAB94 PO (14:20)
== END 2021-03-16 09:36 | disposition home or self-care (01) ==
LOC: ATC 08:45
DX: T84.51XA Infection and inflammatory reaction due to internal right hip prosthesis, initial encounter (principal); I13.0 Hypertensive heart and chronic kidney disease with heart failure and stage 1 through stage 4 chronic kidney disease, or unspecified chronic kidney disease; I50.22 Chronic systolic (congestive) heart failure; N18.30 Chronic kidney disease, stage 3 unspecified; E03.9 Hypothyroidism, unspecified; E78.5 Hyperlipidemia, unspecified; G40.909 Epilepsy, unspecified, not intractable, without status epilepticus; K21.9 Gastro-esophageal reflux disease without esophagitis; I25.2 Old myocardial infarction; Y79.2 Prosthetic and other implants, materials and accessory orthopedic devices associated with adverse incidents; Z66 Do not resuscitate
CPT/HCPCS: 96365; J1335

== ENCOUNTER 2021-03-17 08:57 | Day surgery (SDC) | payer MEDICARE, BC ==
--- NOTE | 2021-03-17 09:05 | NUR ---
PT WITH 3+ EDEMA IN LL ARM AND LLE. PT STATES SHE NEEDS TO TAKE HER WATER PILLS. MOVES SLOWLY WITH HELP OF . PIC LINE FLUSHES WELL AND GET AN EASY BLOOD RETURN.
[2021-04-12] MEDS ORDERED: HYDR1TAB94 PO (14:20)
== END 2021-03-17 09:40 | disposition home or self-care (01) ==
LOC: ATC 08:57
DX: T84.51XA Infection and inflammatory reaction due to internal right hip prosthesis, initial encounter (principal); I13.0 Hypertensive heart and chronic kidney disease with heart failure and stage 1 through stage 4 chronic kidney disease, or unspecified chronic kidney disease; I50.22 Chronic systolic (congestive) heart failure; N18.30 Chronic kidney disease, stage 3 unspecified; E03.9 Hypothyroidism, unspecified; G40.909 Epilepsy, unspecified, not intractable, without status epilepticus; E78.5 Hyperlipidemia, unspecified; K21.9 Gastro-esophageal reflux disease without esophagitis; I25.2 Old myocardial infarction; Y79.2 Prosthetic and other implants, materials and accessory orthopedic devices associated with adverse incidents; Z66 Do not resuscitate
CPT/HCPCS: 96365; J1335

== ENCOUNTER 2021-03-18 00:30 | Day surgery (SDC) | payer MEDICARE, BC ==
[2021-03-19] MEDS ORDERED: POTCHL20ER PO (08:02)
[2021-04-12] MEDS ORDERED: HYDR1TAB94 PO (14:20)
== END 2021-03-18 08:25 | disposition home or self-care (01) ==
LOC: ATC 00:30
DX: T84.51XD Infection and inflammatory reaction due to internal right hip prosthesis, subsequent encounter (principal); I13.0 Hypertensive heart and chronic kidney disease with heart failure and stage 1 through stage 4 chronic kidney disease, or unspecified chronic kidney disease; I50.22 Chronic systolic (congestive) heart failure; N18.30 Chronic kidney disease, stage 3 unspecified; G40.909 Epilepsy, unspecified, not intractable, without status epilepticus; E03.9 Hypothyroidism, unspecified; E78.5 Hyperlipidemia, unspecified; D50.8 Other iron deficiency anemias; K21.9 Gastro-esophageal reflux disease without esophagitis; I25.2 Old myocardial infarction; Z88.5 Allergy status to narcotic agent; Z88.8 Allergy status to other drugs, medicaments and biological substances; E87.6 Hypokalemia; D64.9 Anemia, unspecified; R53.81 Other malaise; M79.605 Pain in left leg
CPT/HCPCS: 80053; 81003; 83605; 83735; 85025; 87040; 93971; 96365; 96366; 99285-25; A9270; J1335; J3480

== ENCOUNTER 2021-03-19 01:39 | Day surgery (SDC) | payer MEDICARE, BC ==
[2021-03-19] MEDS ORDERED: POTCHL20ER PO (08:02)
[2021-04-12] MEDS ORDERED: HYDR1TAB94 PO (14:20)
== END 2021-03-19 08:20 | disposition home or self-care (01) ==
LOC: ATC 01:39
DX: T84.51XA Infection and inflammatory reaction due to internal right hip prosthesis, initial encounter (principal); I13.0 Hypertensive heart and chronic kidney disease with heart failure and stage 1 through stage 4 chronic kidney disease, or unspecified chronic kidney disease; I50.22 Chronic systolic (congestive) heart failure; N18.30 Chronic kidney disease, stage 3 unspecified; E03.9 Hypothyroidism, unspecified; G40.909 Epilepsy, unspecified, not intractable, without status epilepticus; E78.5 Hyperlipidemia, unspecified; K21.9 Gastro-esophageal reflux disease without esophagitis; I25.2 Old myocardial infarction; Y79.2 Prosthetic and other implants, materials and accessory orthopedic devices associated with adverse incidents; Z66 Do not resuscitate
CPT/HCPCS: 80047; 85014; 96365; J1335

== ENCOUNTER 2021-03-20 01:58 | Day surgery (SDC) | payer MEDICARE, BC ==
[~2021-03-20 01:58] MED LIST changes: +POTCHL20ER PO
[2021-04-12] MEDS ORDERED: HYDR1TAB94 PO (14:20)
== END 2021-03-20 09:00 | disposition home or self-care (01) ==
LOC: ATC 01:58
DX: T84.51XA Infection and inflammatory reaction due to internal right hip prosthesis, initial encounter (principal); E03.9 Hypothyroidism, unspecified; G40.909 Epilepsy, unspecified, not intractable, without status epilepticus; I13.0 Hypertensive heart and chronic kidney disease with heart failure and stage 1 through stage 4 chronic kidney disease, or unspecified chronic kidney disease; I50.22 Chronic systolic (congestive) heart failure; N18.30 Chronic kidney disease, stage 3 unspecified; E78.5 Hyperlipidemia, unspecified; I25.2 Old myocardial infarction; Z88.5 Allergy status to narcotic agent; Z88.8 Allergy status to other drugs, medicaments and biological substances; Z66 Do not resuscitate; Y79.2 Prosthetic and other implants, materials and accessory orthopedic devices associated with adverse incidents
CPT/HCPCS: 96365; J1335

== ENCOUNTER 2021-03-21 07:19 | Day surgery (SDC) | payer MEDICARE, BC ==
[2021-04-12] MEDS ORDERED: HYDR1TAB94 PO (14:20)
== END 2021-03-21 08:38 | disposition home or self-care (01) ==
LOC: ATC 07:19
DX: T84.51XA Infection and inflammatory reaction due to internal right hip prosthesis, initial encounter (principal); M00.9 Pyogenic arthritis, unspecified; I25.2 Old myocardial infarction; I13.0 Hypertensive heart and chronic kidney disease with heart failure and stage 1 through stage 4 chronic kidney disease, or unspecified chronic kidney disease; N18.30 Chronic kidney disease, stage 3 unspecified; I50.22 Chronic systolic (congestive) heart failure; E03.9 Hypothyroidism, unspecified; G40.909 Epilepsy, unspecified, not intractable, without status epilepticus; E78.5 Hyperlipidemia, unspecified; K21.9 Gastro-esophageal reflux disease without esophagitis; Z88.5 Allergy status to narcotic agent; Z88.8 Allergy status to other drugs, medicaments and biological substances; Z66 Do not resuscitate; Y79.2 Prosthetic and other implants, materials and accessory orthopedic devices associated with adverse incidents
CPT/HCPCS: 96365; J1335

== ENCOUNTER 2021-03-22 01:05 | Day surgery (SDC) | payer MEDICARE, BC ==
[2021-04-12] MEDS ORDERED: HYDR1TAB94 PO (14:20)
== END 2021-03-22 08:26 | disposition home or self-care (01) ==
LOC: ATC 01:05
DX: T84.51XA Infection and inflammatory reaction due to internal right hip prosthesis, initial encounter (principal); E03.9 Hypothyroidism, unspecified; G40.909 Epilepsy, unspecified, not intractable, without status epilepticus; I13.0 Hypertensive heart and chronic kidney disease with heart failure and stage 1 through stage 4 chronic kidney disease, or unspecified chronic kidney disease; I50.22 Chronic systolic (congestive) heart failure; N18.30 Chronic kidney disease, stage 3 unspecified; K21.9 Gastro-esophageal reflux disease without esophagitis; Z88.5 Allergy status to narcotic agent; Z88.8 Allergy status to other drugs, medicaments and biological substances; Z66 Do not resuscitate; Y79.2 Prosthetic and other implants, materials and accessory orthopedic devices associated with adverse incidents
CPT/HCPCS: 96365; J1335

== ENCOUNTER 2021-03-23 08:17 | Day surgery (SDC) | payer MEDICARE, BC ==
[2021-04-12] MEDS ORDERED: HYDR1TAB94 PO (14:20)
== END 2021-03-23 08:58 | disposition home or self-care (01) ==
LOC: ATC 08:17
DX: T84.51XA Infection and inflammatory reaction due to internal right hip prosthesis, initial encounter (principal); Y79.2 Prosthetic and other implants, materials and accessory orthopedic devices associated with adverse incidents; I13.0 Hypertensive heart and chronic kidney disease with heart failure and stage 1 through stage 4 chronic kidney disease, or unspecified chronic kidney disease; I50.22 Chronic systolic (congestive) heart failure; N18.30 Chronic kidney disease, stage 3 unspecified; E78.5 Hyperlipidemia, unspecified; E03.9 Hypothyroidism, unspecified; G40.909 Epilepsy, unspecified, not intractable, without status epilepticus; Z88.5 Allergy status to narcotic agent; Z88.8 Allergy status to other drugs, medicaments and biological substances; Z66 Do not resuscitate
CPT/HCPCS: 96365; J1335

== ENCOUNTER 2021-03-24 08:07 | Day surgery (SDC) | payer MEDICARE, BC ==
[2021-04-12] MEDS ORDERED: HYDR1TAB94 PO (14:20)
== END 2021-03-24 08:54 | disposition home or self-care (01) ==
LOC: ATC 08:07
DX: T84.51XA Infection and inflammatory reaction due to internal right hip prosthesis, initial encounter (principal); E03.9 Hypothyroidism, unspecified; G40.909 Epilepsy, unspecified, not intractable, without status epilepticus; I13.0 Hypertensive heart and chronic kidney disease with heart failure and stage 1 through stage 4 chronic kidney disease, or unspecified chronic kidney disease; I50.22 Chronic systolic (congestive) heart failure; N18.30 Chronic kidney disease, stage 3 unspecified; K21.9 Gastro-esophageal reflux disease without esophagitis; Z88.5 Allergy status to narcotic agent; Z88.8 Allergy status to other drugs, medicaments and biological substances; Z66 Do not resuscitate; Y79.2 Prosthetic and other implants, materials and accessory orthopedic devices associated with adverse incidents
CPT/HCPCS: 96365; J1335

== ENCOUNTER 2021-03-25 01:47 | Day surgery (SDC) | payer MEDICARE, BC ==
[2021-04-12] MEDS ORDERED: HYDR1TAB94 PO (14:20)
== END 2021-03-25 08:55 | disposition home or self-care (01) ==
LOC: ATC 01:47
DX: T84.51XD Infection and inflammatory reaction due to internal right hip prosthesis, subsequent encounter (principal); E03.9 Hypothyroidism, unspecified; E78.5 Hyperlipidemia, unspecified; G40.909 Epilepsy, unspecified, not intractable, without status epilepticus; K21.9 Gastro-esophageal reflux disease without esophagitis; I25.2 Old myocardial infarction; I13.0 Hypertensive heart and chronic kidney disease with heart failure and stage 1 through stage 4 chronic kidney disease, or unspecified chronic kidney disease; I50.22 Chronic systolic (congestive) heart failure; N18.30 Chronic kidney disease, stage 3 unspecified; Z88.5 Allergy status to narcotic agent; Z88.8 Allergy status to other drugs, medicaments and biological substances
CPT/HCPCS: 96365; J1335

== ENCOUNTER 2021-03-26 02:28 | Day surgery (SDC) | payer MEDICARE, BC ==
--- NOTE | 2021-03-26 08:02 | NUR ---
PT CONTINUES TO HAVE SWELLING IN L ARM. PT STATES IT IS FROM HER RECENT FALL. PT TO SEE DR DOHERTY AFTER THIS APPT.
[2021-04-12] MEDS ORDERED: HYDR1TAB94 PO (14:20)
== END 2021-03-26 08:17 | disposition home or self-care (01) ==
LOC: ATC 02:28
DX: T84.51XD Infection and inflammatory reaction due to internal right hip prosthesis, subsequent encounter (principal); E03.9 Hypothyroidism, unspecified; G40.909 Epilepsy, unspecified, not intractable, without status epilepticus; E78.5 Hyperlipidemia, unspecified; D50.9 Iron deficiency anemia, unspecified; I13.0 Hypertensive heart and chronic kidney disease with heart failure and stage 1 through stage 4 chronic kidney disease, or unspecified chronic kidney disease; N18.30 Chronic kidney disease, stage 3 unspecified; I50.22 Chronic systolic (congestive) heart failure; I25.2 Old myocardial infarction; K21.9 Gastro-esophageal reflux disease without esophagitis; Z88.5 Allergy status to narcotic agent; Z88.8 Allergy status to other drugs, medicaments and biological substances
CPT/HCPCS: 96365; J1335

== ENCOUNTER 2021-03-27 02:13 | Day surgery (SDC) | payer MEDICARE, BC ==
[2021-04-12] MEDS ORDERED: HYDR1TAB94 PO (14:20)
== END 2021-03-27 08:28 | disposition home or self-care (01) ==
LOC: ATC 02:13
DX: T84.51XA Infection and inflammatory reaction due to internal right hip prosthesis, initial encounter (principal); I13.0 Hypertensive heart and chronic kidney disease with heart failure and stage 1 through stage 4 chronic kidney disease, or unspecified chronic kidney disease; N18.30 Chronic kidney disease, stage 3 unspecified; I50.22 Chronic systolic (congestive) heart failure; G40.909 Epilepsy, unspecified, not intractable, without status epilepticus; E03.9 Hypothyroidism, unspecified; E78.5 Hyperlipidemia, unspecified; K21.9 Gastro-esophageal reflux disease without esophagitis; Y79.2 Prosthetic and other implants, materials and accessory orthopedic devices associated with adverse incidents; Z88.5 Allergy status to narcotic agent; Z88.8 Allergy status to other drugs, medicaments and biological substances; Z66 Do not resuscitate
CPT/HCPCS: 96365; J1335

== ENCOUNTER 2021-03-28 04:02 | Day surgery (SDC) | payer MEDICARE, BC ==
[2021-04-12] MEDS ORDERED: HYDR1TAB94 PO (14:20)
== END 2021-03-28 08:16 | disposition home or self-care (01) ==
LOC: ATC 04:02
DX: T84.51XA Infection and inflammatory reaction due to internal right hip prosthesis, initial encounter (principal); I13.0 Hypertensive heart and chronic kidney disease with heart failure and stage 1 through stage 4 chronic kidney disease, or unspecified chronic kidney disease; N18.30 Chronic kidney disease, stage 3 unspecified; I50.22 Chronic systolic (congestive) heart failure; G40.909 Epilepsy, unspecified, not intractable, without status epilepticus; E78.5 Hyperlipidemia, unspecified; E03.9 Hypothyroidism, unspecified; Y79.2 Prosthetic and other implants, materials and accessory orthopedic devices associated with adverse incidents; Z88.5 Allergy status to narcotic agent; Z88.8 Allergy status to other drugs, medicaments and biological substances; Z66 Do not resuscitate
CPT/HCPCS: 96365; J1335

== ENCOUNTER 2021-03-29 00:29 | Day surgery (SDC) | payer MEDICARE, BC ==
[2021-04-12] MEDS ORDERED: HYDR1TAB94 PO (14:20)
== END 2021-03-29 08:40 | disposition home or self-care (01) ==
LOC: ATC 00:29
DX: T84.51XA Infection and inflammatory reaction due to internal right hip prosthesis, initial encounter (principal); E03.9 Hypothyroidism, unspecified; G40.909 Epilepsy, unspecified, not intractable, without status epilepticus; E78.5 Hyperlipidemia, unspecified; I13.0 Hypertensive heart and chronic kidney disease with heart failure and stage 1 through stage 4 chronic kidney disease, or unspecified chronic kidney disease; I50.22 Chronic systolic (congestive) heart failure; N18.30 Chronic kidney disease, stage 3 unspecified; K21.9 Gastro-esophageal reflux disease without esophagitis; Y79.2 Prosthetic and other implants, materials and accessory orthopedic devices associated with adverse incidents
CPT/HCPCS: 96365; J1335

== ENCOUNTER 2021-03-30 00:41 | Observation (INO) | payer MEDICARE, BC ==
[~2021-03-30] VITALS: Ht 157.5 cm; Wt 60.8 kg
[2021-03-30 01:03] LABS: BASOPHILS ABSOLUTE AUTO 0.04 K/mm3 (0.00-0.23); BASOPHILS PERCENT AUTO 1 % (0-2); EOSINOPHILS ABSOLUTE AUTO 0.06 K/mm3 (0.00-0.68); EOSINOPHILS PERCENT AUTO 1 % (0-6); Hematocrit 26.9 % (33.0-51.0); Hemoglobin 8.4 g/dL (11.5-16.0); IMMATURE GRAN ABSOLUTE AUTO 0.04 K/mm3 (0.00-0.10); IMMATURE GRAN PERCENT AUTO 1 % (0-1); LYMPHOCYTES ABSOLUTE AUTO 1.67 K/mm3 (0.84-5.20); LYMPHOCYTES PERCENT AUTO 34 % (21-46); MONOCYTES ABSOLUTE AUTO 0.36 K/mm3 (0.16-1.47); MONOCYTES PERCENT AUTO 7 % (4-13); Mean Corpuscular HGB 30.2 pg (26.0-34.0); Mean Corpuscular HGB Conc 31.2 g/dL (31.5-36.5); Mean Corpuscular Volume 97 fL (80-100); Mean Platelet Volume 8.6 fL (9.1-12.4); NEUTROPHILS ABSOLUTE AUTO 2.81 K/mm3 (1.96-9.15); NEUTROPHILS PERCENT AUTO 57 % (41-73); Platelet Count 266 K/mm3 (150-400); RDW Coefficient Variation 20.3 % (11.7-14.2); RDW Standard Deviation 73.5 fL (35.1-46.3); Red Blood Cell Count 2.78 M/mm3 (3.80-5.20); White Blood Cell Count 4.98 K/mm3 (4.00-11.30)
[2021-03-30 01:17] LABS: Albumin/Globulin Ratio 0.6 (0.8-1.8); Bilirubin, Total 0.3 mg/dL (0.1-1.0); Bun/Creatinine Ratio 8.5 (12.0-20.0); Calcium, Blood 8.3 mg/dL (8.5-10.1); Creatinine, Blood 1.29 mg/dL (0.40-1.00); Globulin, Blood 3.5 g/dL (2.2-4.0); Magnesium, Blood 2.3 mg/dL (1.6-2.4); Potassium, Blood 3.7 mmol/L (3.5-5.5); Total Protein, Blood 5.5 g/dL (6.4-8.2); Troponin I 0.041 ng/mL (0.000-0.040)
[2021-03-30 04:37] LABS: SARS-Cov-2 (COVID-19) PCR, MMC NEGATIVE (NEGATIVE)
[2021-03-30 06:02] LABS: BASOPHILS ABSOLUTE AUTO 0.04 K/mm3 (0.00-0.23); BASOPHILS PERCENT AUTO 1 % (0-2); EOSINOPHILS ABSOLUTE AUTO 0.08 K/mm3 (0.00-0.68); EOSINOPHILS PERCENT AUTO 2 % (0-6); Hematocrit 27.3 % (33.0-51.0); Hemoglobin 8.3 g/dL (11.5-16.0); IMMATURE GRAN ABSOLUTE AUTO 0.03 K/mm3 (0.00-0.10); IMMATURE GRAN PERCENT AUTO 1 % (0-1); LYMPHOCYTES ABSOLUTE AUTO 1.53 K/mm3 (0.84-5.20); LYMPHOCYTES PERCENT AUTO 30 % (21-46); MONOCYTES ABSOLUTE AUTO 0.42 K/mm3 (0.16-1.47); MONOCYTES PERCENT AUTO 8 % (4-13); Mean Corpuscular HGB 29.6 pg (26.0-34.0); Mean Corpuscular HGB Conc 30.4 g/dL (31.5-36.5); Mean Corpuscular Volume 98 fL (80-100); Mean Platelet Volume 8.6 fL (9.1-12.4); NEUTROPHILS ABSOLUTE AUTO 3.07 K/mm3 (1.96-9.15); NEUTROPHILS PERCENT AUTO 59 % (41-73); Platelet Count 259 K/mm3 (150-400); RDW Coefficient Variation 20.2 % (11.7-14.2); RDW Standard Deviation 73.3 fL (35.1-46.3); White Blood Cell Count 5.17 K/mm3 (4.00-11.30)
[2021-03-30 06:38] LABS: Bun/Creatinine Ratio 8.9 (12.0-20.0); Calcium, Blood 7.6 mg/dL (8.5-10.1); Creatinine, Blood 1.23 mg/dL (0.40-1.00); Potassium, Blood 3.4 mmol/L (3.5-5.5); Troponin I 0.043 ng/mL (0.000-0.040)
--- NOTE | 2021-03-30 10:14 | NUR ---
STRESS TEST: PT TO [employer] AT THIS TIME VIA WHEELCHAIR FOR STRESS TEST. WILL CONT TO MONITOR WHEN RETURNS TO ROOM.
--- NOTE | 2021-03-30 11:49 | NUR ---
PT HAVING ECHO AT THIS TIME. ASLEEP IN BED. PT WAS GIVEN COFFEE AFTER STRESS TEST PER CABINET FINISHER REQUEST.
--- NOTE | 2021-03-30 13:24 | NUR ---
ASSUMED CARE, LYING IN BED IN NO ACUTE DISTRESS.
--- NOTE | 2021-03-30 13:33 | NUR ---
REPORT PASSED TO KAN DAVIS.
--- NOTE | 2021-03-30 14:37 | NUR ---
PATIENT COMPLAINING OF CHEST WALL DISCOMFORT, DOES NOT RADIATE TO ARM OR JAW. PAIN WORSENS WHEN TRYING TO SIT UP OR WHEN PATIENT RUBS AT CHEST WALL. PATIENT RATES 5/10. DENIES DYSPENA. BP 144/75 P 73. ISTRATE AT BEDSIDE FOR EVAL, SEE ORDERS
--- NOTE | 2021-03-30 15:29 | NUR ---
PATIENT STATES COMPLETE RESOLUTION OF DISCOMFORT UNLESS SHE "PUSHES AROUND ON HER CHEST"
--- NOTE | 2021-03-30 18:39 | NUR ---
NO ACUTE CHANGES THROUGHOUT AFTERNOON. PATIENT REPORTS CHEST DISCOMFORT ONLY WHEN MOVING IN BED OR WITH PALPATION. NO DYSPNEA OR ANY OTHER ASSOCIATED SYMPTOMS. APPEARS IN NO ACUTE DISTRESS.
[2021-03-31 04:30] LABS: BASOPHILS ABSOLUTE AUTO 0.02 K/mm3 (0.00-0.23); BASOPHILS PERCENT AUTO 1 % (0-2); EOSINOPHILS PERCENT AUTO 0 % (0-6); Hematocrit 29.8 % (33.0-51.0); Hemoglobin 9.1 g/dL (11.5-16.0); IMMATURE GRAN ABSOLUTE AUTO 0.03 K/mm3 (0.00-0.10); IMMATURE GRAN PERCENT AUTO 1 % (0-1); LYMPHOCYTES ABSOLUTE AUTO 0.66 K/mm3 (0.84-5.20); LYMPHOCYTES PERCENT AUTO 22 % (21-46); MONOCYTES ABSOLUTE AUTO 0.15 K/mm3 (0.16-1.47); MONOCYTES PERCENT AUTO 5 % (4-13); Mean Corpuscular HGB 29.4 pg (26.0-34.0); Mean Corpuscular HGB Conc 30.5 g/dL (31.5-36.5); Mean Corpuscular Volume 96 fL (80-100); Mean Platelet Volume 8.8 fL (9.1-12.4); NEUTROPHILS ABSOLUTE AUTO 2.14 K/mm3 (1.96-9.15); NEUTROPHILS PERCENT AUTO 71 % (41-73); Platelet Count 284 K/mm3 (150-400); RDW Coefficient Variation 19.9 % (11.7-14.2); RDW Standard Deviation 70.6 fL (35.1-46.3); Red Blood Cell Count 3.09 M/mm3 (3.80-5.20)
[2021-03-31 04:53] LABS: Alanine Aminotransfer (ALT/SGP 10 U/L (12-78); Albumin, Blood 1.8 g/dL (3.4-5.0); Albumin/Globulin Ratio 0.5 (0.8-1.8); Alk Phos 290 U/L (50-136); Anion Gap 5 mmol/L (6-16); Aspartate Aminotrans (AST/SGOT 24 U/L (12-37); Bilirubin, Total 0.4 mg/dL (0.1-1.0); Blood Urea Nitrogen 12 mg/dL (8-24); Bun/Creatinine Ratio 10.7 (12.0-20.0); CHOL/HDL RATIO 1.2; CO2, Blood 26 mmol/L (21-32); Calcium, Blood 7.6 mg/dL (8.5-10.1); Chloride, Blood 108 mmol/L (98-108); Cholesterol 127 mg/dL (50-200); Creatinine, Blood 1.12 mg/dL (0.40-1.00); Globulin, Blood 3.4 g/dL (2.2-4.0); Glomerular Filtration Rate 47 (60-); Glucose, Blood 119 mg/dL (70-99); HDL Cholesterol 102 mg/dL (>39); LDL/HDL RATIO 0.1; Low Density Lipoprotein Chol 13 mg/dL (0-110); Magnesium, Blood 2.2 mg/dL (1.6-2.4); Potassium, Blood 3.8 mmol/L (3.5-5.5); Sodium, Blood 139 mmol/L (136-145); Total Protein, Blood 5.2 g/dL (6.4-8.2); Triglycerides 59 mg/dL (30-160); Troponin I 0.032 ng/mL (0.000-0.040); Very Low Density Lipoprot Chol 11 mg/dL (6-32)
[2021-03-31] MEDS ORDERED: VISBIOME 112.51 EACH PO (12:35)
--- NOTE | 2021-03-31 13:28 | NUR ---
DISCHARGE SUMMARY PATIENT ALERT AND ORIENTED THROUGHOUT SHIFT. TOLERATING CARDIAC DIET. SINUS CHAD ON TELE. DISCHARGE EDUCATION GIVEN ON NEW RXS, ACTIVITY, AND FOLLOW UP APPTS. PATIENT LEFT UNIT AT 1325 VIA WHEELCHAIR FOR HOME.
[2021-04-12] MEDS ORDERED: HYDR1TAB94 PO (14:20)
== END 2021-03-31 13:24 | disposition home or self-care (01) ==
LOC: ER 00:41 → ERHOLD 00:42 → ER 03:33 → ERHOLD 03:33 → SURS 08:21
PROVIDERS: Emergency Medicine; Family Medicine; ADMIT Internal Medicine
DX: R07.89 Other chest pain (principal); D50.9 Iron deficiency anemia, unspecified; I13.0 Hypertensive heart and chronic kidney disease with heart failure and stage 1 through stage 4 chronic kidney disease, or unspecified chronic kidney disease; I50.43 Acute on chronic combined systolic (congestive) and diastolic (congestive) heart failure; N18.30 Chronic kidney disease, stage 3 unspecified; R77.8 Other specified abnormalities of plasma proteins; T84.51XA Infection and inflammatory reaction due to internal right hip prosthesis, initial encounter; E03.9 Hypothyroidism, unspecified; E78.5 Hyperlipidemia, unspecified; G40.909 Epilepsy, unspecified, not intractable, without status epilepticus; I35.0 Nonrheumatic aortic (valve) stenosis; Z87.19 Personal history of other diseases of the digestive system; Z88.5 Allergy status to narcotic agent; Z88.8 Allergy status to other drugs, medicaments and biological substances; Z20.822 Contact with and (suspected) exposure to COVID-19
CPT/HCPCS: 36415; 71046; 78452; 80048; 80053; 80061; 83735; 83880; 84484; 85025; 86141; 93005; 93010; 93017; 93308; 93321; 96372; 96374; 96376; 99285-25; A9270; A9500; G0378; J0706; J1650; J1940; J2185; J2785; J3010; J7512; U0004

== ENCOUNTER 2021-04-01 02:34 | Day surgery (SDC) | payer MEDICARE, BC ==
[~2021-04-01 02:34] MED LIST changes: +VISBIOME 112.51 EACH PO
[2021-04-12] MEDS ORDERED: HYDR1TAB94 PO (14:20)
== END 2021-04-01 09:25 | disposition home or self-care (01) ==
LOC: ATC 02:34
DX: T84.51XA Infection and inflammatory reaction due to internal right hip prosthesis, initial encounter (principal); I13.0 Hypertensive heart and chronic kidney disease with heart failure and stage 1 through stage 4 chronic kidney disease, or unspecified chronic kidney disease; I50.22 Chronic systolic (congestive) heart failure; N18.30 Chronic kidney disease, stage 3 unspecified; E03.9 Hypothyroidism, unspecified; G40.909 Epilepsy, unspecified, not intractable, without status epilepticus; E78.5 Hyperlipidemia, unspecified; K21.9 Gastro-esophageal reflux disease without esophagitis; I25.2 Old myocardial infarction; Y79.2 Prosthetic and other implants, materials and accessory orthopedic devices associated with adverse incidents; Z88.5 Allergy status to narcotic agent; Z88.8 Allergy status to other drugs, medicaments and biological substances
CPT/HCPCS: 96365; J1335

== ENCOUNTER 2021-04-02 00:57 | Day surgery (SDC) | payer MEDICARE, BC ==
[2021-04-12] MEDS ORDERED: HYDR1TAB94 PO (14:20)
== END 2021-04-02 09:18 | disposition home or self-care (01) ==
LOC: ATC 00:57
DX: T84.51XA Infection and inflammatory reaction due to internal right hip prosthesis, initial encounter (principal); Y79.2 Prosthetic and other implants, materials and accessory orthopedic devices associated with adverse incidents; I13.0 Hypertensive heart and chronic kidney disease with heart failure and stage 1 through stage 4 chronic kidney disease, or unspecified chronic kidney disease; N18.30 Chronic kidney disease, stage 3 unspecified; I50.22 Chronic systolic (congestive) heart failure; E78.5 Hyperlipidemia, unspecified; E03.9 Hypothyroidism, unspecified; G40.909 Epilepsy, unspecified, not intractable, without status epilepticus; Z88.5 Allergy status to narcotic agent; Z88.8 Allergy status to other drugs, medicaments and biological substances; Z66 Do not resuscitate
CPT/HCPCS: 96365; J1335

== ENCOUNTER 2021-04-03 00:21 | Day surgery (SDC) | payer MEDICARE, BC ==
[2021-04-04] MEDS ORDERED: BP MED (08:47)
[2021-04-12] MEDS ORDERED: HYDR1TAB94 PO (14:20)
== END 2021-04-03 15:09 | disposition home or self-care (01) ==
LOC: ATC 00:21
DX: T84.51XA Infection and inflammatory reaction due to internal right hip prosthesis, initial encounter (principal); I13.0 Hypertensive heart and chronic kidney disease with heart failure and stage 1 through stage 4 chronic kidney disease, or unspecified chronic kidney disease; N18.30 Chronic kidney disease, stage 3 unspecified; I50.22 Chronic systolic (congestive) heart failure; E03.9 Hypothyroidism, unspecified; G40.909 Epilepsy, unspecified, not intractable, without status epilepticus; E78.5 Hyperlipidemia, unspecified; K21.9 Gastro-esophageal reflux disease without esophagitis; Z88.5 Allergy status to narcotic agent; Z88.8 Allergy status to other drugs, medicaments and biological substances; Z66 Do not resuscitate; Y79.2 Prosthetic and other implants, materials and accessory orthopedic devices associated with adverse incidents
CPT/HCPCS: 96365; J1335

== ENCOUNTER 2021-04-04 00:59 | Day surgery (SDC) | payer MEDICARE, BC ==
[2021-04-04] MEDS ORDERED: BP MED (08:47)
[2021-04-12] MEDS ORDERED: HYDR1TAB94 PO (14:20)
== END 2021-04-04 09:14 | disposition home or self-care (01) ==
LOC: ATC 00:59
DX: T84.51XA Infection and inflammatory reaction due to internal right hip prosthesis, initial encounter (principal); I13.0 Hypertensive heart and chronic kidney disease with heart failure and stage 1 through stage 4 chronic kidney disease, or unspecified chronic kidney disease; N18.30 Chronic kidney disease, stage 3 unspecified; I50.22 Chronic systolic (congestive) heart failure; E03.9 Hypothyroidism, unspecified; G40.909 Epilepsy, unspecified, not intractable, without status epilepticus; E78.5 Hyperlipidemia, unspecified; G47.33 Obstructive sleep apnea (adult) (pediatric); Y79.2 Prosthetic and other implants, materials and accessory orthopedic devices associated with adverse incidents; Z88.5 Allergy status to narcotic agent; Z88.8 Allergy status to other drugs, medicaments and biological substances; Z66 Do not resuscitate
CPT/HCPCS: 96365; J1335

== ENCOUNTER 2021-04-05 02:10 | Day surgery (SDC) | payer MEDICARE, BC ==
[~2021-04-05 02:10] MED LIST changes: +BP MED
--- NOTE | 2021-04-05 09:00 | NUR ---
PT WITH 1+ EDEMA TO LEFT ELBOW AREA. PICC INSERTION SITE WNL. NO REDNESS, SWELLING, WARMTH OR PAIN NOTED TO INSERTION SITE OR THE L ARM ABOVE THE SITE. PT DENIES NUMBNESS OR TINGLING TO LEFT HAND. CMS CHECK INTACT TO LEFT HAND. PICC FLUSHES EASILY AND DRAWS BLOOD BACK WELL.
[2021-04-12] MEDS ORDERED: HYDR1TAB94 PO (14:20)
== END 2021-04-05 09:18 | disposition home or self-care (01) ==
LOC: ATC 02:10
DX: T84.51XA Infection and inflammatory reaction due to internal right hip prosthesis, initial encounter (principal); I25.2 Old myocardial infarction; I13.0 Hypertensive heart and chronic kidney disease with heart failure and stage 1 through stage 4 chronic kidney disease, or unspecified chronic kidney disease; I50.22 Chronic systolic (congestive) heart failure; N18.30 Chronic kidney disease, stage 3 unspecified; E03.9 Hypothyroidism, unspecified; G40.909 Epilepsy, unspecified, not intractable, without status epilepticus; E78.5 Hyperlipidemia, unspecified; K21.9 Gastro-esophageal reflux disease without esophagitis; Z88.5 Allergy status to narcotic agent; Z88.8 Allergy status to other drugs, medicaments and biological substances; Z66 Do not resuscitate; Y79.2 Prosthetic and other implants, materials and accessory orthopedic devices associated with adverse incidents
CPT/HCPCS: 96365; J1335

== ENCOUNTER 2021-04-06 02:09 | Day surgery (SDC) | payer MEDICARE, BC ==
[2021-04-12] MEDS ORDERED: HYDR1TAB94 PO (14:20)
== END 2021-04-06 09:12 | disposition home or self-care (01) ==
LOC: ATC 02:09
DX: T84.51XA Infection and inflammatory reaction due to internal right hip prosthesis, initial encounter (principal); Y79.2 Prosthetic and other implants, materials and accessory orthopedic devices associated with adverse incidents; I13.0 Hypertensive heart and chronic kidney disease with heart failure and stage 1 through stage 4 chronic kidney disease, or unspecified chronic kidney disease; I50.22 Chronic systolic (congestive) heart failure; N18.30 Chronic kidney disease, stage 3 unspecified; E78.5 Hyperlipidemia, unspecified; E03.9 Hypothyroidism, unspecified; G40.909 Epilepsy, unspecified, not intractable, without status epilepticus; Z88.5 Allergy status to narcotic agent; Z88.8 Allergy status to other drugs, medicaments and biological substances; Z66 Do not resuscitate
CPT/HCPCS: 96365; J1335

== ENCOUNTER 2021-04-07 03:32 | Day surgery (SDC) | payer MEDICARE, BC ==
[2021-04-12] MEDS ORDERED: HYDR1TAB94 PO (14:20)
== END 2021-04-07 09:02 | disposition home or self-care (01) ==
LOC: ATC 03:32
DX: T84.51XA Infection and inflammatory reaction due to internal right hip prosthesis, initial encounter (principal); I13.0 Hypertensive heart and chronic kidney disease with heart failure and stage 1 through stage 4 chronic kidney disease, or unspecified chronic kidney disease; I50.22 Chronic systolic (congestive) heart failure; N18.30 Chronic kidney disease, stage 3 unspecified; E03.9 Hypothyroidism, unspecified; G40.909 Epilepsy, unspecified, not intractable, without status epilepticus; E78.5 Hyperlipidemia, unspecified; K21.9 Gastro-esophageal reflux disease without esophagitis; I25.2 Old myocardial infarction; Y79.2 Prosthetic and other implants, materials and accessory orthopedic devices associated with adverse incidents
CPT/HCPCS: 96365; J1335

== ENCOUNTER 2021-04-08 02:36 | Day surgery (SDC) | payer MEDICARE, BC ==
[2021-04-12] MEDS ORDERED: HYDR1TAB94 PO (14:20)
== END 2021-04-08 09:25 | disposition home or self-care (01) ==
LOC: ATC 02:36
DX: T84.51XD Infection and inflammatory reaction due to internal right hip prosthesis, subsequent encounter (principal); E03.9 Hypothyroidism, unspecified; G40.909 Epilepsy, unspecified, not intractable, without status epilepticus; E78.5 Hyperlipidemia, unspecified; K21.9 Gastro-esophageal reflux disease without esophagitis; D63.1 Anemia in chronic kidney disease; D50.8 Other iron deficiency anemias; I13.0 Hypertensive heart and chronic kidney disease with heart failure and stage 1 through stage 4 chronic kidney disease, or unspecified chronic kidney disease; I50.22 Chronic systolic (congestive) heart failure; N18.30 Chronic kidney disease, stage 3 unspecified; Z88.5 Allergy status to narcotic agent; Z88.8 Allergy status to other drugs, medicaments and biological substances
CPT/HCPCS: 96365; J1335

== ENCOUNTER 2021-04-09 01:36 | Day surgery (SDC) | payer MEDICARE, BC ==
[2021-04-12] MEDS ORDERED: HYDR1TAB94 PO (14:20)
== END 2021-04-09 09:22 | disposition home or self-care (01) ==
LOC: ATC 01:36
DX: T84.51XD Infection and inflammatory reaction due to internal right hip prosthesis, subsequent encounter (principal); I13.0 Hypertensive heart and chronic kidney disease with heart failure and stage 1 through stage 4 chronic kidney disease, or unspecified chronic kidney disease; N18.30 Chronic kidney disease, stage 3 unspecified; I50.22 Chronic systolic (congestive) heart failure; K21.9 Gastro-esophageal reflux disease without esophagitis; D63.1 Anemia in chronic kidney disease; D50.8 Other iron deficiency anemias; E78.5 Hyperlipidemia, unspecified; E03.9 Hypothyroidism, unspecified; I25.2 Old myocardial infarction; G40.909 Epilepsy, unspecified, not intractable, without status epilepticus; Z88.5 Allergy status to narcotic agent; Z88.8 Allergy status to other drugs, medicaments and biological substances
CPT/HCPCS: 96365; J1335

== ENCOUNTER 2022-11-17 09:51 | Emergency (ER) | payer MEDICARE, BC ==
[~2022-11-17] VITALS: Ht 160 cm; Wt 59.9 kg
[~2022-11-17 09:51] MED LIST changes: +HYDR1TAB94 PO
[2022-11-17] MEDS ORDERED: Ventolin/Prove6.7 GM INH (12:44)
[2022-11-17] MEDS ORDERED: ONDA4ODT (12:45)
[2022-11-17] MEDS ORDERED: PANT20 (13:07)
[2022-11-17] MEDS ORDERED: AZIT250 PO (13:18)
== END 2022-11-17 13:51 | disposition home or self-care (01) ==
LOC: ER 09:51
DX: J18.9 Pneumonia, unspecified organism (principal); I12.9 Hypertensive chronic kidney disease with stage 1 through stage 4 chronic kidney disease, or unspecified chronic kidney disease; N18.30 Chronic kidney disease, stage 3 unspecified; E03.9 Hypothyroidism, unspecified; E78.5 Hyperlipidemia, unspecified; D50.9 Iron deficiency anemia, unspecified; Z79.899 Other long term (current) drug therapy
CPT/HCPCS: 71046; A9270

== ENCOUNTER 2022-12-18 15:06 | Emergency (ER) | payer MEDICARE, BC ==
[~2022-12-18] VITALS: Ht 160 cm; Wt 129.0 kg
[~2022-12-18 15:06] MED LIST changes: +AZIT250 PO; +ONDA4ODT; +PANT20; +Ventolin/Prove6.7 GM INH
[2022-12-18 15:33] VITALS: BP 111/70
[2022-12-18] MEDS ORDERED: Norco 10-325 T1 EACH PO (17:29)
[2022-12-18] MEDS ORDERED: Naprosyn500 MG PO (17:29)
== END 2022-12-18 17:37 | disposition home or self-care (01) ==
LOC: ER 15:06
DX: M25.552 Pain in left hip (principal); M79.602 Pain in left arm; Z88.5 Allergy status to narcotic agent; Z79.899 Other long term (current) drug therapy; I12.9 Hypertensive chronic kidney disease with stage 1 through stage 4 chronic kidney disease, or unspecified chronic kidney disease; E03.9 Hypothyroidism, unspecified; G40.909 Epilepsy, unspecified, not intractable, without status epilepticus; E78.5 Hyperlipidemia, unspecified; N18.30 Chronic kidney disease, stage 3 unspecified; K21.9 Gastro-esophageal reflux disease without esophagitis
CPT/HCPCS: 73502; 99283-25

== ENCOUNTER 2023-06-19 13:31 | Emergency (ER) | payer MEDICARE, BC ==
[~2023-06-19] VITALS: Ht 157.5 cm; Wt 47.2 kg
[~2023-06-19 13:31] MED LIST changes: +Naprosyn500 MG PO; +Norco 10-325 T1 EACH PO
[2023-06-19 14:32] LABS: BASOPHILS ABSOLUTE AUTO 0.03 K/mm3 (0.00-0.23); BASOPHILS PERCENT AUTO 0 % (0-2); EOSINOPHILS ABSOLUTE AUTO 0.03 K/mm3 (0.00-0.68); EOSINOPHILS PERCENT AUTO 0 % (0-6); Hematocrit 36.9 % (33.0-51.0); Hemoglobin 11.9 g/dL (11.5-16.0); IMMATURE GRAN ABSOLUTE AUTO 0.02 K/mm3 (0.00-0.10); IMMATURE GRAN PERCENT AUTO 0 % (0-1); LYMPHOCYTES PERCENT AUTO 19 % (21-46); MONOCYTES ABSOLUTE AUTO 0.53 K/mm3 (0.16-1.47); MONOCYTES PERCENT AUTO 7 % (4-13); Mean Corpuscular HGB 30.4 pg (26.0-34.0); Mean Corpuscular HGB Conc 32.2 g/dL (31.5-36.5); Mean Corpuscular Volume 94 fL (80-100); Mean Platelet Volume 9.7 fL (9.1-12.4); NEUTROPHILS ABSOLUTE AUTO 5.35 K/mm3 (1.96-9.15); NEUTROPHILS PERCENT AUTO 73 % (41-73); Platelet Count 201 K/mm3 (150-400); RDW Coefficient Variation 13.7 % (11.7-14.2); RDW Standard Deviation 46.9 fL (35.1-46.3); Red Blood Cell Count 3.92 M/mm3 (3.80-5.20); White Blood Cell Count 7.36 K/mm3 (4.00-11.30)
[2023-06-19 15:07] LABS: Albumin, Blood 3.6 g/dL (3.4-5.0); Bilirubin, Total 0.6 mg/dL (0.1-1.0); Bun/Creatinine Ratio 13.6 (12.0-20.0); Calcium, Blood 9.3 mg/dL (8.5-10.1); Creatinine, Blood 1.54 mg/dL (0.40-1.00); Globulin, Blood 3.7 g/dL (2.2-4.0); Potassium, Blood 3.4 mmol/L (3.5-5.5); Total Protein, Blood 7.3 g/dL (6.4-8.2)
[2023-06-19 15:29] LABS: Source, Urine Clean Catch
[2023-06-19 15:40] LABS: Appearance, Urine Clear (Clear); Bilirubin, Urine Neg (Neg); Blood, Urine Neg (Neg); Glucose Qualitative, Urine Neg (Neg); Ketones, Urine Neg (Neg); Leukocyte Esterase, Urine Neg (Neg); Nitrite, Urine Neg (Neg); Protein, Urine Neg (Neg); Urobilinogen, Urine NORM (Normal); pH, Urine 6.5 (5.0-8.0)
[2023-06-19] MEDS ORDERED: ZONI100 (15:49)
[2023-06-19] MEDS ORDERED: TORSE20 PO (15:49)
[2023-06-19] MEDS ORDERED: CENTRUM SILVER1 EAC2 (15:50)
[2023-06-19] MEDS ORDERED: Calcium Acetat667 MG (15:50)
[2023-06-19] MEDS ORDERED: IRON18 MG (15:50)
[2023-06-19 15:58] LABS: Color, Urine Pale Yellow (P-Yellow)
[2023-06-19 17:20] LABS: Influenza A, PCR NEGATIVE (NEGATIVE); Influenza B, PCR NEGATIVE (NEGATIVE); Resp Syncytial Virus, PCR NEGATIVE (NEGATIVE); SARS-Cov-2 (COVID-19) PCR, MMC NEGATIVE (NEGATIVE)
[2023-06-19] MEDS ORDERED: HYDR1TAB94 PO (18:05)
[2023-06-19] MEDS ORDERED: ONDA4 PO (18:05)
[2023-06-19 18:21] VITALS: BP 131/81
== END 2023-06-19 18:29 | disposition home or self-care (01) ==
LOC: ER 13:31
PROVIDERS: Emergency Medicine; Student in an Organized Health Care Education/Training Program
DX: R11.2 Nausea with vomiting, unspecified (principal); R19.7 Diarrhea, unspecified; R79.89 Other specified abnormal findings of blood chemistry; Z88.5 Allergy status to narcotic agent; Z79.899 Other long term (current) drug therapy; Z11.52 Encounter for screening for COVID-19; Z20.822 Contact with and (suspected) exposure to COVID-19; I12.9 Hypertensive chronic kidney disease with stage 1 through stage 4 chronic kidney disease, or unspecified chronic kidney disease; E03.9 Hypothyroidism, unspecified; G40.909 Epilepsy, unspecified, not intractable, without status epilepticus; E78.5 Hyperlipidemia, unspecified; N18.30 Chronic kidney disease, stage 3 unspecified; K21.9 Gastro-esophageal reflux disease without esophagitis; Z87.891 Personal history of nicotine dependence
CPT/HCPCS: 0241U; 36415; 71046; 80053; 81003; 83690; 85025; 96361; 96374; 99283-25; A9270; J2405; J7120

== ENCOUNTER 2023-07-15 19:36 | Emergency (ER) | payer MEDICARE, BC ==
[~2023-07-15] VITALS: Ht 160 cm; Wt 51.7 kg
[~2023-07-15 19:36] MED LIST changes: +CENTRUM SILVER1 EAC2; +Calcium Acetat667 MG; +IRON18 MG; +ONDA4 PO
[2023-07-15 20:33] VITALS: BP 123/93
[2023-07-15] MEDS ORDERED: Ultram50 MG PO (21:37)
== END 2023-07-15 21:46 | disposition home or self-care (01) ==
LOC: ER 19:36
DX: S22.32XA Fracture of one rib, left side, initial encounter for closed fracture (principal); I13.10 Hypertensive heart and chronic kidney disease without heart failure, with stage 1 through stage 4 chronic kidney disease, or unspecified chronic kidney disease; N18.30 Chronic kidney disease, stage 3 unspecified; E03.9 Hypothyroidism, unspecified; D50.9 Iron deficiency anemia, unspecified; E78.5 Hyperlipidemia, unspecified; W22.8XXA Striking against or struck by other objects, initial encounter; W19.XXXA Unspecified fall, initial encounter; Z87.891 Personal history of nicotine dependence; Z79.890 Hormone replacement therapy; Z79.899 Other long term (current) drug therapy
CPT/HCPCS: 71101; 99283-25; A9270

== ENCOUNTER 2023-07-21 13:11 | Inpatient (IN) | payer MEDICARE, BC ==
[~2023-07-21] VITALS: Ht 152.4 cm; Wt 39.3 kg
[~2023-07-21 13:11] MED LIST changes: +Ultram50 MG PO
[2023-07-21 13:40] LABS: BASOPHILS ABSOLUTE AUTO 0.01 K/mm3 (0.00-0.23); BASOPHILS PERCENT AUTO 0 % (0-2); EOSINOPHILS ABSOLUTE AUTO 0.01 K/mm3 (0.00-0.68); EOSINOPHILS PERCENT AUTO 0 % (0-6); Hematocrit 35.8 % (33.0-51.0); Hemoglobin 11.7 g/dL (11.5-16.0); IMMATURE GRAN ABSOLUTE AUTO 0.05 K/mm3 (0.00-0.10); IMMATURE GRAN PERCENT AUTO 1 % (0-1); LYMPHOCYTES ABSOLUTE AUTO 1.02 K/mm3 (0.84-5.20); LYMPHOCYTES PERCENT AUTO 13 % (21-46); MONOCYTES ABSOLUTE AUTO 0.45 K/mm3 (0.16-1.47); MONOCYTES PERCENT AUTO 6 % (4-13); Mean Corpuscular HGB 29.3 pg (26.0-34.0); Mean Corpuscular HGB Conc 32.7 g/dL (31.5-36.5); Mean Corpuscular Volume 90 fL (80-100); Mean Platelet Volume 9.2 fL (9.1-12.4); NEUTROPHILS ABSOLUTE AUTO 6.65 K/mm3 (1.96-9.15); NEUTROPHILS PERCENT AUTO 81 % (41-73); Platelet Count 171 K/mm3 (150-400); RDW Coefficient Variation 14.5 % (11.7-14.2); RDW Standard Deviation 46.9 fL (35.1-46.3); White Blood Cell Count 8.19 K/mm3 (4.00-11.30)
[2023-07-21 14:00] LABS: Alanine Aminotransfer (ALT/SGP 17 U/L (12-78); Albumin, Blood 3.1 g/dL (3.4-5.0); Albumin/Globulin Ratio 0.8 (0.8-1.8); Alk Phos 132 U/L (50-136); Anion Gap 8 mmol/L (6-16); Aspartate Aminotrans (AST/SGOT 42 U/L (12-37); Bilirubin, Total 0.6 mg/dL (0.1-1.0); Blood Urea Nitrogen 33 mg/dL (8-24); Bun/Creatinine Ratio 23.2 (12.0-20.0); CO2, Blood 23 mmol/L (21-32); Calcium, Blood 8.9 mg/dL (8.5-10.1); Chloride, Blood 98 mmol/L (98-108); Creatinine, Blood 1.42 mg/dL (0.40-1.00); Globulin, Blood 3.8 g/dL (2.2-4.0); Glomerular Filtration Rate 38 (60-); Glucose, Blood 141 mg/dL (70-99); Magnesium, Blood 2.3 mg/dL (1.6-2.4); Potassium, Blood 3.7 mmol/L (3.5-5.5); Sodium, Blood 129 mmol/L (136-145); Total Protein, Blood 6.9 g/dL (6.4-8.2)
[2023-07-21 15:34] LABS: Influenza A, PCR NEGATIVE (NEGATIVE); Influenza B, PCR NEGATIVE (NEGATIVE); Resp Syncytial Virus, PCR NEGATIVE (NEGATIVE); SARS-Cov-2 (COVID-19) PCR, MMC NEGATIVE (NEGATIVE)
[2023-07-21 15:51] LABS: Bilirubin, Urine Neg (Neg); Blood, Urine Neg (Neg); Glucose Qualitative, Urine Neg (Neg); Ketones, Urine Neg (Neg); Leukocyte Esterase, Urine Neg (Neg); Nitrite, Urine Neg (Neg); Protein, Urine Neg (Neg); Urobilinogen, Urine NORM (Normal)
[2023-07-21 16:01] LABS: Appearance, Urine Clear (Clear); Color, Urine Yellow (P-Yellow)
--- NOTE | 2023-07-21 16:31 | NUR ---
ED Palliative Care Consult Spoke with Dr Huerta and discussed case. Pt and family may benefit from advanced care planning. Pt resting on gurney upon arrival. Pt appears to struggle with tracking conversation. Pt's spouse and ED GENERAL TELLER present during visit. Pt known to this bond writer from previous hospital stay. During last visit Pt had elected to be DNR. Discussed code status wishes. Educated on life sustaining treatments including risks and implications to CPR. Pt appears to struggle with understanding but elects to be Full Code. Palliative Care will F/U once Pt is admitted to the floor for advanced care planning.
--- NOTE | 2023-07-21 16:47 | NUR ---
"Spiritual Care | Pt./Nurse Request Pt. is awake in bed and welcomes my visit. Pt. is pleasant. Pt. requested prayer and displays evidence of guilt for having missed mass. Hear Pts. confession and give words of pastoral encouragement. Pt. displayed evidence of having been blessed. Prayed for Pt. Pt. verbalized gratitude for the spiritual care visit. Reported visit to the senior front end web developer."
[2023-07-21] MEDS ORDERED: ZONI100 PO (17:11)
[2023-07-21 18:15] VITALS: BP 124/91
--- NOTE | 2023-07-21 19:42 | NUR ---
PT ARRIVED TO THE MEDICAL FLOOR AT 1800 IN STABLE CONDITION.
[2023-07-21 20:12] VITALS: BP 125/88
--- NOTE | 2023-07-22 01:02 | NUR ---
07/21/232023 PT LYING IN BED, TELE METAL CANS SUPERVISOR AND THEN PCU RURAL MAIL CARRIER CALLED AND REPORTED ST ELEVATIONS ON THE TELE READING. DID STAT EKG, SHOWED ST AT 106. VS ARE STABLE. PT REPORTS PAIN ON L SIDE THAT IS SHARP, PAIN IN NOT ON CHEST OR ANYWHERE ELSE. GAVE PAIN MEDS, WILL EVAL FOR EFFECT. CALLED REGARDING EVENT. GOT ORDER FOR SECOND TROPONIN THE FIRST ONE WAS ELEVAATED AT 309. PT DENIES NEED FOR ANYTHING ELSE AT THIS TIME. NO OTHER APPARENT SIGNS OF DISTRESS. CALL LIGHT IS IN REACH.
--- NOTE | 2023-07-22 01:05 | NUR ---
07/21/23 2240 SECOND TROPONIN WAS 312, CALLED TO LET HIM KNOW, DR BEAN, NO NEW ORDERS AT THIS TIME. PT LYING IN BED, EYES CLOSED, APPEARS TO BE RESTING. BREATHING IS EVEN, UNLABORED. NO APPARENT SIGNS OF DISTRESS. CALL LIGHT IS IN REACH.
--- NOTE | 2023-07-22 01:06 | NUR ---
PT REQUESTED AND RECIEVED PAIN MEDS, WILL EVAL FOR EFFECT. NO OTHER APPARENT SIGNS OF DISTRESS. CALL LIGHT IS IN REACH.
--- NOTE | 2023-07-22 04:17 | NUR ---
0200 PT LYING IN BED, EYES CLOSED, APPEARS TO BE RESTING. BREATHIG IS EVEN, UNLABORED. NO APPARENT SIGNS OF DISTRESS. CALL LIGHT IS IN REACH.
--- NOTE | 2023-07-22 04:18 | NUR ---
PT LYING IN BED, EYES CLOSED, APPEARS TO BE RESTING. BREATHING IS EVEN, UNLABORED. NO APPARENT SIGNS OF DISTRESS. CALL LIGHT IS IN REACH.
[2023-07-22 04:45] VITALS: BP 125/88
--- NOTE | 2023-07-22 05:03 | NUR ---
PT IS AAO X 4, ON RA. SOLIMAN WITH CLEAR YELLOW URINE. TELE WITH ST 100'S. SCD'S. REPORTS PAIN IN L RIBS, GOT PAIN MEDS X 2. SMALL STAGE 2 PRESSURE ULCER IN TOP ON GLUTEAL FOLD. BRUISING ON L SIDE AND R 2ND AND 3RD TOES. HEATING PAD BEING USED.
[2023-07-22 05:42] LABS: BASOPHILS ABSOLUTE AUTO 0.02 K/mm3 (0.00-0.23); BASOPHILS PERCENT AUTO 0 % (0-2); EOSINOPHILS ABSOLUTE AUTO 0.03 K/mm3 (0.00-0.68); EOSINOPHILS PERCENT AUTO 0 % (0-6); Hematocrit 32.6 % (33.0-51.0); Hemoglobin 10.5 g/dL (11.5-16.0); IMMATURE GRAN ABSOLUTE AUTO 0.03 K/mm3 (0.00-0.10); IMMATURE GRAN PERCENT AUTO 0 % (0-1); LYMPHOCYTES ABSOLUTE AUTO 1.23 K/mm3 (0.84-5.20); LYMPHOCYTES PERCENT AUTO 18 % (21-46); MONOCYTES ABSOLUTE AUTO 0.37 K/mm3 (0.16-1.47); MONOCYTES PERCENT AUTO 6 % (4-13); Mean Corpuscular HGB 29.1 pg (26.0-34.0); Mean Corpuscular HGB Conc 32.2 g/dL (31.5-36.5); Mean Corpuscular Volume 90 fL (80-100); Mean Platelet Volume 9.8 fL (9.1-12.4); NEUTROPHILS ABSOLUTE AUTO 4.99 K/mm3 (1.96-9.15); NEUTROPHILS PERCENT AUTO 75 % (41-73); Platelet Count 141 K/mm3 (150-400); RDW Coefficient Variation 14.6 % (11.7-14.2); RDW Standard Deviation 47.8 fL (35.1-46.3); Red Blood Cell Count 3.61 M/mm3 (3.80-5.20); White Blood Cell Count 6.67 K/mm3 (4.00-11.30)
--- NOTE | 2023-07-22 06:00 | NUR ---
PT LYING IN BED, WAKES EASILY TO VERBAL STIMULI. PT DENIES NEED FOR PAIN MEDS AT THIS TIME. NO OTHER APPARENT SIGNS OF DISTRESS. CALL LIGHT IS IN REACH. NO OTHER CHANGES THIS SHIFT.
[2023-07-22 06:26] LABS: Albumin, Blood 2.6 g/dL (3.4-5.0); Albumin/Globulin Ratio 0.8 (0.8-1.8); Bilirubin, Total 0.6 mg/dL (0.1-1.0); Bun/Creatinine Ratio 20.9 (12.0-20.0); Calcium, Blood 8.5 mg/dL (8.5-10.1); Creatinine, Blood 1.39 mg/dL (0.40-1.00); Globulin, Blood 3.4 g/dL (2.2-4.0); Magnesium, Blood 2.4 mg/dL (1.6-2.4); Potassium, Blood 3.5 mmol/L (3.5-5.5)
[2023-07-22 07:27] VITALS: BP 127/95
--- NOTE | 2023-07-22 08:42 | NUR ---
0840- THIS RN CALLED DR. ROONEY AND NOTIFIED HER OF SIGNIFICANT ST ELEVATION AND DEPRESSION REPORTED FROM [facility]. ME ORDERED STAT EKG. RN TO PLACE ORDER.
--- NOTE | 2023-07-22 09:31 | NUR ---
0970- THIS RN NOTIFIED DR. ROONEY OF PT'S CRITICAL TROP OF 342. ME STATED SHE WOULD COME TO BED SIDE SHORTLY. RN INFORMED MD PT'S EKG WAS ALSO COMPLETE.
--- NOTE | 2023-07-22 11:03 | NUR ---
1045- PT HAD COMPLAINTS OF CHEST PAIN AND PRESSURE THAT WAS SHARP AND CONSTANT. PT ALSO COMPLAINED OF SOB. PT'S O2 SATS = 96% CURRENTLY ON RA. PT PLACED ON [address] ROONEY NOTIFIED OF ALL EVENTS AND UPDATED ON PT'S STAUTS/COMPLAINTS. SAID TO START HEP DRIP ASA.
[2023-07-22 11:14] LABS: Anti-Xa UFH, PHA Monitoring <0.10 IU/mL; Prothrombin Time Results 11.5 Sec (9.7-11.5)
--- NOTE | 2023-07-22 13:31 | NUR ---
Spiirtual Care attempted. Pt. is resting, and had a short visit with the spouse. Spouse is pleasant but we agree that it would be best to return while Pt. is awake.
--- NOTE | 2023-07-22 13:41 | NUR ---
SPiritual Care Visit. Pt. is awake and welcomes my visit. Spouse is present. Pt. is pleasant. Facilitated a life review and considered matters of wong and belief. Prayed with Pt. Pt. and spouse verbalized gratitude for the spiritual care visit.
--- NOTE | 2023-07-22 15:57 | NUR ---
1555- RN CALLED DR. ROONEY TO INFORM HER NO TROPONIN LABS HAVE BEEN ORDERED FOR TRANDING PT'S TROPS. STATED SHE WAS GOING TO PLACE ORDER.
--- NOTE | 2023-07-22 17:13 | NUR ---
SUMMARY- REFER TO ABOVE NOTES/COMMENTS FOR ACUTE EVENTS THIS SHIFT. PT ON 1 L O2 FOR SOB/COMFORT. PT HAS HAD INTERMITTENT CHEST PAIN THIS SHIFT. AAOX1-[address] PT IS BED REST.
--- NOTE | 2023-07-22 18:49 | NUR ---
1850- HEPARIN DRIP STOPPED PER PHARMACY ORDER AND PHONE CALL DUE TO 1.25 ANTIXA.
[2023-07-22 19:30] VITALS: BP 121/92
[2023-07-23 02:07] LABS: BASOPHILS ABSOLUTE AUTO 0.06 K/mm3 (0.00-0.23); BASOPHILS PERCENT AUTO 1 % (0-2); EOSINOPHILS ABSOLUTE AUTO 0.01 K/mm3 (0.00-0.68); EOSINOPHILS PERCENT AUTO 0 % (0-6); Hematocrit 36.2 % (33.0-51.0); Hemoglobin 11.3 g/dL (11.5-16.0); IMMATURE GRAN PERCENT AUTO 1 % (0-1); LYMPHOCYTES ABSOLUTE AUTO 1.19 K/mm3 (0.84-5.20); LYMPHOCYTES PERCENT AUTO 13 % (21-46); MONOCYTES ABSOLUTE AUTO 0.63 K/mm3 (0.16-1.47); MONOCYTES PERCENT AUTO 7 % (4-13); Mean Corpuscular HGB 29.1 pg (26.0-34.0); Mean Corpuscular HGB Conc 31.2 g/dL (31.5-36.5); Mean Corpuscular Volume 93 fL (80-100); Mean Platelet Volume 9.8 fL (9.1-12.4); NEUTROPHILS PERCENT AUTO 79 % (41-73); Platelet Count 169 K/mm3 (150-400); RDW Coefficient Variation 14.9 % (11.7-14.2); RDW Standard Deviation 51.2 fL (35.1-46.3); Red Blood Cell Count 3.88 M/mm3 (3.80-5.20); White Blood Cell Count 9.29 K/mm3 (4.00-11.30)
[2023-07-23 02:22] LABS: Bun/Creatinine Ratio 21.5 (12.0-20.0); Calcium, Blood 8.7 mg/dL (8.5-10.1); Creatinine, Blood 1.63 mg/dL (0.40-1.00); Magnesium, Blood 2.4 mg/dL (1.6-2.4); Potassium, Blood 4.7 mmol/L (3.5-5.5)
[2023-07-23 03:58] VITALS: BP 127/92
--- NOTE | 2023-07-23 04:52 | NUR ---
1900: ASSUMED CARE OF PT. REPORT RECEIVED FROM DAY SHIFT RN. PT IS LAYING IN BED WITH HOB ELEVATED. FAMILY AT THE BEDSIDE. BREATHING IS EVEN AND UNLABORED, NO ACUTE DISTRESS NOTED. HEPARIN DRIP IS TURNED OFF AT THIS TIME FOR 1HR PER PHARMACY ORDERS. RESTARTED PER ORDERS. NEXT DRAW WITH ORDERS TO HOLD FOR 1 HOUR AGAIN, [id number] HEPARIN DRIP WAS STOPPPED, RESTARTED AT NEW RATE, SEE EMR. PT MEDICATED FOR PAIN HER LEFT SIDE RIBS DURING THE NIGHT. DENIES CARDIAC SYMPTOMS, DENIES SOB. NEEDS MET AND SAFETY MEASURES TAKEN.
[2023-07-23 07:08] VITALS: BP 121/89
[2023-07-23 16:25] VITALS: BP 115/85
--- NOTE | 2023-07-23 17:29 | NUR ---
PATIENT MAKES NEEDS KNOWN, OREINTED TO SELF AND , EASILY CONFUSED, UNDRIRECTABLE OR CONSOLABLE AT TIMES. SATS RA 96%, HEPARIN GTT STOPPED, POOR INTAKE TODAY, MINMAL ACTIVITY WITH PT/OT TODAY, PATIENT BECAME VERY CONFUSED AFTER OXYCODONE, MEDICATED WITH ATARAX PER DR ROONEY, PATIENT RESTING WITHOUT AGGITATION OR RESTLESSNESS, BED ALARM ON, CALL LIGHT WITH IN REACH
--- NOTE | 2023-07-23 18:38 | NUR ---
REPORTED DAILY OUT PUT IN SOLIMAN ONLY 220, POOR INTAKE, DISCONTINUED LASIX, RO BE EVALUATED AGAIN PER DR ROONEY TOMORROW, COMMODITY MANAGER DID ROUND ON PATIENT TODAY
[2023-07-23 19:19] VITALS: BP 115/79
[2023-07-24 03:31] VITALS: BP 125/83
--- NOTE | 2023-07-24 04:57 | NUR ---
1900: ASSUMED CARE OF PT. REPORT RECEIVED FROM DAY SHIFT RN. PT IS LAYING IN BED WITH HOB ELEVATED. FAMILY AT THE BEDSIDE. PT IS A/O, TALKED ABOUT PLAN FOR ANGIOGRAM WITH THIS RN AND FAMILY. PT IS NPO OF MIDNIGHT. INDWELLING CATHETER IN PLACE WITH DECREASED CHERELLE URINE OUTPUT THIS SHIFT. SEE EMR FOR ROS. BREATHING IS EVEN AND UNLABORED ON RA. PT DENIES COMPLAINTS. CATHETER CARE COMPLETED. BLE ELVATED ON PILLOWS. ALL NEEDS ADDRESSED AND SAFETY PRECAUTIONS TAKEN.
[2023-07-24 06:14] LABS: BASOPHILS ABSOLUTE AUTO 0.03 K/mm3 (0.00-0.23); BASOPHILS PERCENT AUTO 0 % (0-2); EOSINOPHILS ABSOLUTE AUTO 0.01 K/mm3 (0.00-0.68); EOSINOPHILS PERCENT AUTO 0 % (0-6); Hematocrit 32.9 % (33.0-51.0); Hemoglobin 10.7 g/dL (11.5-16.0); IMMATURE GRAN ABSOLUTE AUTO 0.13 K/mm3 (0.00-0.10); IMMATURE GRAN PERCENT AUTO 1 % (0-1); LYMPHOCYTES ABSOLUTE AUTO 1.27 K/mm3 (0.84-5.20); LYMPHOCYTES PERCENT AUTO 14 % (21-46); MONOCYTES ABSOLUTE AUTO 0.49 K/mm3 (0.16-1.47); MONOCYTES PERCENT AUTO 5 % (4-13); Mean Corpuscular HGB 29.1 pg (26.0-34.0); Mean Corpuscular HGB Conc 32.5 g/dL (31.5-36.5); Mean Corpuscular Volume 89 fL (80-100); Mean Platelet Volume 9.7 fL (9.1-12.4); NEUTROPHILS PERCENT AUTO 79 % (41-73); Platelet Count 185 K/mm3 (150-400); RDW Standard Deviation 48.1 fL (35.1-46.3); Red Blood Cell Count 3.68 M/mm3 (3.80-5.20); White Blood Cell Count 9.13 K/mm3 (4.00-11.30)
[2023-07-24 06:48] LABS: Magnesium, Blood 2.6 mg/dL (1.6-2.4)
[2023-07-24 06:49] LABS: Albumin, Blood 2.8 g/dL (3.4-5.0); Albumin/Globulin Ratio 0.8 (0.8-1.8); Bilirubin, Total 0.8 mg/dL (0.1-1.0); Bun/Creatinine Ratio 21.7 (12.0-20.0); Calcium, Blood 8.7 mg/dL (8.5-10.1); Creatinine, Blood 2.12 mg/dL (0.40-1.00); Globulin, Blood 3.7 g/dL (2.2-4.0); Potassium, Blood 4.4 mmol/L (3.5-5.5); Total Protein, Blood 6.5 g/dL (6.4-8.2)
[2023-07-24 07:37] VITALS: BP 133/87
--- NOTE | 2023-07-24 11:18 | NUR ---
Pt to lab rep, report called to RN for PCU 14. All belongings including dentures to PCU 14
[2023-07-24 12:30] VITALS: BP 125/91
--- NOTE | 2023-07-24 12:31 | NUR ---
ARRIVAL TO PCU: PT FROM [facility] @1215 VIA BED. PT LETHARGIC, RESPONDS TO PAINFUL STIMULI. BP STABLE, HR SR 80'S, AFEBRILE, SPO2 >92% ON 2L NC. RESPIRATIONS EVEN AND UNLABORED. PT WITH TR BAND TO R. RADIAL, SITE OVERALL C/D/I. PT WITH ANGIOSEAL TO R. FEMORAL ACCESS, NO SWELLING, OOZING, BRUISING NOTED. PT CURRENTLY LYING SUPINE, SIGNIFICANT OTHER AT BEDSIDE. BED IN LOW, CALL LIGHT IN REACH.
[2023-07-24 12:51] VITALS: BP 117/76
[2023-07-24 13:46] LABS: Bun/Creatinine Ratio 24.9 (12.0-20.0); Calcium, Blood 8.3 mg/dL (8.5-10.1); Creatinine, Blood 1.97 mg/dL (0.40-1.00); Potassium, Blood 4.5 mmol/L (3.5-5.5)
[2023-07-24 16:10] VITALS: BP 131/95
--- NOTE | 2023-07-24 17:13 | NUR ---
SHIFT SUMMARY. PT REMAINS LETHARGIC SINCE ARRIVAL TO PCU. RESPONDS TO PAINFUL STIMULI, QUICKLY FALLS BACK ASLEEP, OCCASIONALLY STATES "PLEASE LET ME GO HOME." BP AND HR STABLE. AFEBRILE. SPO2 >98% ON ROOM AIR. RESPIRATIONS EVEN AND UNLABORED. PT WITH R. RADIAL SITE, RECOVERED AT 1530. SLIGHT BRUISING NOTED AT SITE. PT WITH R. FEMORAL ACCESS, ANGIOSEAL REMAINS IN PLACE. NO BRUISING/OOZING/SWELLING NOTED. PT REMAINS LYING IN SUPINE POSTION. SOLIMAN CATH IN PLACE, PATENT AND DRAINING YELLOW URINE TO GRAVITY. SPOUSE AT BEDSIDE THROUGHOUT THE SHIFT, UPDATED ON PT PLAN OF CARE. NS GTT IN R. AC @100ML/HR. BED IN LOW, CALL LIGHT IN REACH, WILL REPORT TO ONCOMING RN.
[2023-07-24 20:00] VITALS: BP 129/87
[2023-07-25] VITALS: BP 131/94
[2023-07-25 04:00] VITALS: BP 100/81
--- NOTE | 2023-07-25 05:53 | NUR ---
SHIFT SUMMARY THIS RN ASSUMED CARE OF PT AT 1900, REPORT FROM KAN MYERS. PT ASLEEP DURING REPORT, BUT DOES OPEN HER EYES TO SOUND OR WHEN HE NAME IS CALLED. PT ORIENTED X3, HOWEVER PERIODS OF CONFUSION AND FORGETFULNESS NOTED. PT ATTEMPTING TO CLIMB OUT OF BED SEVERAL TIMES DURING THE NIGHT, BUT WAKING UP YELLING FOR HER AND "VIVIEN". PT REORIENTED BUT NOT VERY RESPONSIVE TO REDIRECTION. PT ABLE TO BE VERBALLY CALMED AT TIMES AND DISTRACTED HOWEVER THIS IS NOT ALWAYS POSSIBLE. PT PULLING AT TELE CORDS, ARMBOARD AND CATHETER AT TIMES. PT PROVIDED WATER, REPOSITIONING, AND PAIN MANAGEMENT TO HELP COMFORT PT IS NOT REALLY ABLE TO VERBALIZE HER NEEDS OR STATE WHAT IS WRONG. BED ALARM ON, SIDE RAILS UP X3, ROUNDING, AND BED IN LOW POSITION. VSS T/O SHIFT; BLOOD PRESSURE 120 - 130'S, REMAINS ON 3 LPM NC, TEMP MAX 99.4, HRR SINUS RHYTHM. RATE 90 - 100'S. PT C/O PAIN IN "LEFT RIBS" ON AND OFF "FROM FALL AT HOME". TYLENOL PER EMAR AND HEATING PAD TO RELIEVE PAIN. R RADIAL AND FEMORAL SITES REMAIN WNL. SOLIMAN CATHETER IN PLACE AND DRAINING TO GRAVITY. OF NOTE, THIS AM THIS RN NOTICED SMALL AMOUNT OF DRIED BLOOD ON ATTENDS, POSSIBLY FROM CATHETER IF THE PATIENT TUGGED OR PULLED ON IT WHILE ATTEMPTING TO GET OUT OF BED. THIS RN ASSESSED CATHETER AND DID NOT NOTICE ANY MORE BLOOD OR OTHER CONCERNS. NO BM THIS SHIFT. PT CURRENTLY RESTING, CALL LIGHT IN REACH AND BED ALARM SET. WILL UPDATE ONCOMING RN
[2023-07-25 06:23] LABS: Bun/Creatinine Ratio 27.6 (12.0-20.0); Calcium, Blood 8.8 mg/dL (8.5-10.1); Creatinine, Blood 1.99 mg/dL (0.40-1.00); Magnesium, Blood 2.7 mg/dL (1.6-2.4); Potassium, Blood 4.8 mmol/L (3.5-5.5)
[2023-07-25 07:25] VITALS: BP 129/73
[2023-07-25 11:20] VITALS: BP 120/89
[2023-07-25 15:39] VITALS: BP 128/82
--- NOTE | 2023-07-25 16:55 | NUR ---
SHIFT SUMMARY: PT IS ALERT AND ORIENTED X2-3. ABLE TO TELL THIS RN NAME AND . POOR HISTORIAN. FORGETFUL, NEEDS REDIRECTION WITH TASKS. AT TIMES CAN BE AGITATED WITH CARE. BP AND HR REMAIN STABLE. AFEBRILE. SPO2 >95% ON 2L NC. PT REFUSED AM MEDS THIS SHIFT, TOLD THIS RN "TO PLEASE JUST LET ME ALONE." PT ATTEMPTING TO PULL ON LINES MAJORITY OF THE MORNING. AT BEDSIDE APPROX [id number] AM. PT CALM AND REDIRECTABLE REMAINDER OF DAY. PT POST ANGIOGRAM 07/24. R. RADIAL/R. FEMORAL SITE WITHOUT SWELLING, OOZING, BRUISING. SOLIMAN CATH REMAINS PLACE, PATENT AND DRAINING DARK YELLOW URINE TO GRAVITY. PT ABLE TO WORK WITH PHYSICAL THERAPY THIS SHIFT, ABLE TO STAND BY SIDE OF BED, NEEDED FREQUENT REDIRECTION. PHYSICAL THERAPY RECOMMENDING SNF PLACEMENT. MEDICATED X1 FOR PAIN, SEE EMAR. PT CURRENTLY SITTING IN BED, TALKING WITH SPOUSE. BED ALARM ON FOR SAFETY. BED IN LOW, CALL LIGHT IN REACH, WILL REPORT TO ONCOMING
[2023-07-25 20:00] VITALS: BP 109/80
[2023-07-26] VITALS: BP 108/81
[2023-07-26 04:30] VITALS: BP 113/90
[2023-07-26 04:34] LABS: Albumin, Blood 2.6 g/dL (3.4-5.0); Albumin/Globulin Ratio 0.7 (0.8-1.8); Bilirubin, Total 0.6 mg/dL (0.1-1.0); Bun/Creatinine Ratio 32.3 (12.0-20.0); Calcium, Blood 8.8 mg/dL (8.5-10.1); Creatinine, Blood 1.95 mg/dL (0.40-1.00); Globulin, Blood 3.5 g/dL (2.2-4.0); Total Protein, Blood 6.1 g/dL (6.4-8.2)
--- NOTE | 2023-07-26 05:12 | NUR ---
SHIFT SUMMARY PT A&O REMAINS UNCHANGED, ALTHOUGH PT MUCH MORE CALM THIS SHIFT AND RESTED ON/OFF T/O. PT DID NOT HAVE ANY ATTEMPTS OR EPISODES OF EXITING THE BED. BED ALARM IN PLACE DURING SHIFT AND FREQUENT ROUNDING. VSS T/O; PT AFEBRILE, SBP 1 TEEN'S - 120'S, SINUS RHYTHM W/RATE IN 90'S - 100'S. PT TITRATED TO RA LAST NIGHT, REMAINS ON RA W/SPO2 91 - 97%. PT DID HAVE A FEW BRIEF DESATS WHILE SLEEPING, BUT DID NOT SUSTAIN. NO ACUTE EVENTS. REMAINS CP/PRESSURE FREE. CONTINUES TO REPORT PAIN 7-8/10 IN "LEFT RIBS AND SIDE/BACK". MEDICATION PER EMAR, WELL HEAT, REST AND REPOSITIONING NEEDED. SOLIMAN PATENT AND DRAINING YELLOW URINE TO GRAVITY; 400 MLS OUT THIS SHIFT. PT TOLERATING PO INTAKE, ALTHOUGH NEEDS PROMPTING TO DRINK OR PROMPTING TO ASK IF SHE IS THIRSTY. NO BM THIS SHIFT. CALL LIGHT IN REACH, BED ALARM ON AND IN LOWEST POSITION. WILL UPDATE ONCOMING RN
[2023-07-26 08:54] VITALS: BP 127/86
[2023-07-26] MEDS ORDERED: PANT40 PO (09:07)
[2023-07-26] MEDS ORDERED: SENN187 PO (09:08)
[2023-07-26] MEDS ORDERED: IRON PO (09:10)
[2023-07-26] MEDS ORDERED: CALCIUM PO (09:14)
[2023-07-26] MEDS ORDERED: CENTRUM SILVER1 EAC2 PO (09:15)
[2023-07-26 14:05] VITALS: BP 126/90
--- NOTE | 2023-07-26 17:39 | NUR ---
SHIFT SUMMARY S/P PNEUMONIA/SEPSIS, A/OX4 THOUGH SHE DOES HAVE MILD DIFFICULTING WITH UNDERSTANDING SOME QUESTIONS/INSTRUCTIONS BUT CAN USUALLY ANSWER APPROPRIATELY WHEN THEY ARE RESTATED, SHE HAS SOME COUGHING EPISODES TODAY WHEN DRINKING THIN LIQUIDS SO SHE WAS GIVEN A LIGHTLY THICKENED DRINK AND A CHOCOLATE ENSURE AND HAD NO ISSUES WITH THEM. UP TO CHAIR FOR DINNER CURRENTLY, SHE DOES WELL WITH TRANSFERS WITH ONE PERSON ASSIST AND VERBAL CUES. NO ACUTE EVENTS THIS SHIFT, CALL LIGHT IN REACH.
[2023-07-26 20:00] VITALS: BP 90/66
--- NOTE | 2023-07-26 21:28 | NUR ---
ASSUMPTION OF CARE THIS RN ASSUMED CARE OF PT AT 1900, REPORT FROM KAN HINES. AT BEDSIDE DURING REPORT. PT A&O X2; ALTHOUGH ANSWERS ALL ORIENTATION QUESTIONS CORRECTLY. VSS; REMAINS ON RA, AFEBRILE, HR SINUS IN 90'S. PT DENIES CP/PRESSURE, DENIES SOB. DENIES N/V/D, BUT DOES REPORT PAIN IN HER "STOMACH". PT DINNNER TRAY STILL ON THE TABLE BUT PT DID NOT EAT ANY D/T "STOMACH HURTING". PT'S STATES SHE HAS NO BEEN EATING AND APPETITE HAS BEEN DECREASED X 1-2 WEEKS. PT NOT ABLE TO DESCRIBE HER PAIN BUT DOES REPORT IT IS WHEN "I EAT". ABD NON TENDER TO THE TOUCH. THIS RN OFFERED LIGHT SNACK, PT DECLINED AT THIS TIME. WILL CONTINUE TO PROMPT AND OFFER SNACKS, WATER. PT REPORTS 5/10 PAIN IN "L RIB AND BACK". MEDICATION PER EMAR WELL REPOSITIONING. PT DECLINES NEEDS FOR RESTROOM, ATTENDS IN PLACE AND DRY. PT DECLINES OTHER NEEDS AT THIS TIME. CALL LIGHT IN REACH AND BED ALARM SET
[2023-07-27 03:30] VITALS: BP 112/81
[2023-07-27 05:17] LABS: Hematocrit 32.2 % (33.0-51.0); Hemoglobin 10.3 g/dL (11.5-16.0); Mean Corpuscular HGB 29.4 pg (26.0-34.0); Mean Corpuscular Volume 92 fL (80-100); Mean Platelet Volume 10.1 fL (9.1-12.4); NRBC ABSOLUTE 0.07 K/mm3 (0.00-0.02); NRBC Auto 0.6 /100 WBC (0.0-0.2); Platelet Count 164 K/mm3 (150-400); RDW Coefficient Variation 15.7 % (11.7-14.2); RDW Standard Deviation 51.5 fL (35.1-46.3); White Blood Cell Count 11.01 K/mm3 (4.00-11.30)
[2023-07-27 05:50] LABS: Albumin, Blood 2.9 g/dL (3.4-5.0); Albumin/Globulin Ratio 0.8 (0.8-1.8); Bilirubin, Total 0.7 mg/dL (0.1-1.0); Bun/Creatinine Ratio 36.1 (12.0-20.0); Calcium, Blood 8.6 mg/dL (8.5-10.1); Creatinine, Blood 1.8 mg/dL (0.40-1.00); Globulin, Blood 3.7 g/dL (2.2-4.0); Potassium, Blood 4.3 mmol/L (3.5-5.5); Total Protein, Blood 6.6 g/dL (6.4-8.2)
--- NOTE | 2023-07-27 06:19 | NUR ---
SHIFT SUMMARY PT REMAINS A&O X2, NO CHANGES FROM PREVIOUS. VSS THROUGHOUT THIS SHIFT, PT REMAINS ON RA AND AFEBRILE. NO ACUTE CHANGES FROM ASSUMPTION OF CARE NOTE. PT SLEPT MOST OF THE SHIFT, ONLY WAKING UP WHEN STAFF IN THE ROOM OR DURING CARE. DURING CARE, PT INTERACTING AND CONVERSING WITH STAFF. PT APPETITE AND PO INTAKE POOR. THIS RN CONTINUED TO OFFER SNACKS, PT CONTINUES TO DECLINE, STATES "UGH, NO MY STOMACH HURTS. I AM NOT TOO HUNGRY". EVENTUALLY THIS RN WAS ABLE TO HAVE PT TAKE A FEW SMALL BITES OF APPLESAUCE BUT PT DECLINED AFTER THE FIRST FEW EVEN THOUGH SHE STATES SHE "LIKES APPLESAUCE". PT NEEDING REMINDING AND PROMPTING TO DRINK WATER. PT NOT TOLERAING THIN LIQUIDS AT THIS TIME. PT ALSO NEEDING ALOT OF VERBAL CUEING TO TAKE PO MEDICATION, PT POCKETING AND NOT SWALLOWING HER PILLS UNLESS DIRECTED TO. PT TOLERATES THICKENED LIQUIDS WELL; NO COUGHING NOTED WHEN DRINKING THICKENED LIQUIDS. AROUND 0300, PT STILL NOT UP TO VOID AND ATTEND STILL DRY; THIS RN GOT PT UP TO ATTEMPT TO USE BAS. PT UNABLE TO VOID, PT BLADDER SCANNED WHICH SHOWED >450 MLS. PT STRAIGHT CATH'D X1; 400 MLS YELLOW URINE DRAINED. NO BM THIS SHIFT. PT UNABLE TO TOLERATE 2100 MIRALAX. OTHERWISE PT CURENTLY IS RESTING IN BED, BED ALARM SET AND CALL LIGHT IN REACH. PT HAS NOT YET USED CALL LIGHT TO VERBALIZE ANY NEEDS, BUT IS ABLE TO TELL THIS RN TO USE "RED BUTTON IF NEEDS SOMETHING". WILL UPDATE ONCOMING RN.
[2023-07-27 08:30] VITALS: BP 121/90
[2023-07-27 16:49] VITALS: BP 119/77
--- NOTE | 2023-07-27 18:04 | NUR ---
shift summary Pt lethargic upon care assumption this am. Pt able to awaken and participate with PT and OT together mid morning. Pt up in chair, heavy 2 person assist w/ gb. Pt alert, oriented, some confusion. sp02>90% on ra while awake, desats low 80's when sleeping, placed on 2l nc while napping this evening. Pt medical status, no telemetry. Pt unable to void this shift. bladder scan this afternooon showed 482. Straight cath'd pt per protocol of >400. 525 ml's drained yellow urine. No bm this shift. Pt coughing while swallowing thin liquids this morning. Eating took many verbal ques and directions. Call placed to MD Key. MD Key w/ orders for speech eval. Speech therapist in room this afternoon, see notes. Pt now meds crushed in applesauce. Afternoon medication held, d/t pt lethargic, not opening eyes or engaging in following commands. Pt did say, "yes" when asked if she could hear us. Pt's been at bedside most of day. Call light in reach. bed alarm on.
[2023-07-27 20:00] VITALS: BP 106/83
[2023-07-28 04:00] VITALS: BP 117/85
--- NOTE | 2023-07-28 05:23 | NUR ---
SHIFT SUMMARY PT LETHARGIC MOST OF THE SHIFT, NOT RESPONDING TO VERBAL STIMULI BUT DOES LOCALIZE AND RESPOND TO PAIN. PT NOT OPENING HER EYES TO PROMPTING, FOLLOWING COMMANDS OR VERBAL CUES. VSS; SBP 1 TEENS, AFEBRILE, HR 90'S, AND IS ON RA. THE SHIFT WENT ON, PT BECAME A LITTLE MORE RESPONSIVE; RESPONDING TO SOME QUESTIONS OR OPENING EYES DURING CARE. PT ABLE TO TAKE 2 OF 21OO PO MEDICATION, THEN WAS STOPPED FOLLOWING VERBAL CUES TO SWALLOW OR TAKE BITES OF HER APPLESAUCE. BLADDER SCANNED - SHOWED 445. THIS RN WAS ABLE TO AROUSE PT ENOUGH TO AMBULATE TO BSC, BUT PT WAS NOT ABLE TO VOID. PT STRAIGHT CATH'D X1; 600 MLS OUT. PT DID HAVE VERY SMALL BM THAT WERE HARD AND PEBBLE SHAPED AND BROWN IN COLOR. WHILE PT SLEEPING, THIS RN NOTED THAT PT SPO2 DESAT TO MID 80'S AND OCCASSIONALLY INTO THE 70'S. RN NOTIFIED RESIDENT, OVERNIGHT SLEEP OXIMETRY ORDERED AND COMPLETED THIS SHIFT. PT NOT TOLERATING PO INTAKE WELL. PT IS CURRENTLY SLEEPING, BED ALARM SET AND FREQUENT ROUNDING. WILL UPDATE ONCOMING RN
[2023-07-28 07:54] VITALS: BP 114/80
[2023-07-28 09:05] LABS: BASOPHILS ABSOLUTE AUTO 0.01 K/mm3 (0.00-0.23); BASOPHILS PERCENT AUTO 0 % (0-2); EOSINOPHILS PERCENT AUTO 0 % (0-6); Hematocrit 32.4 % (33.0-51.0); Hemoglobin 10.2 g/dL (11.5-16.0); IMMATURE GRAN ABSOLUTE AUTO 0.08 K/mm3 (0.00-0.10); IMMATURE GRAN PERCENT AUTO 1 % (0-1); LYMPHOCYTES ABSOLUTE AUTO 0.75 K/mm3 (0.84-5.20); LYMPHOCYTES PERCENT AUTO 7 % (21-46); MONOCYTES ABSOLUTE AUTO 0.51 K/mm3 (0.16-1.47); MONOCYTES PERCENT AUTO 5 % (4-13); Mean Corpuscular HGB 29.1 pg (26.0-34.0); Mean Corpuscular HGB Conc 31.5 g/dL (31.5-36.5); Mean Corpuscular Volume 93 fL (80-100); NEUTROPHILS ABSOLUTE AUTO 10.02 K/mm3 (1.96-9.15); NEUTROPHILS PERCENT AUTO 88 % (41-73); NRBC ABSOLUTE 0.05 K/mm3 (0.00-0.02); NRBC Auto 0.4 /100 WBC (0.0-0.2); Platelet Count 171 K/mm3 (150-400); RDW Coefficient Variation 16.5 % (11.7-14.2); White Blood Cell Count 11.37 K/mm3 (4.00-11.30)
[2023-07-28 09:25] LABS: Albumin/Globulin Ratio 0.8 (0.8-1.8); Bilirubin, Total 0.7 mg/dL (0.1-1.0); Bun/Creatinine Ratio 34.5 (12.0-20.0); Calcium, Blood 9.3 mg/dL (8.5-10.1); Creatinine, Blood 1.94 mg/dL (0.40-1.00); Globulin, Blood 3.6 g/dL (2.2-4.0); Potassium, Blood 4.8 mmol/L (3.5-5.5); Total Protein, Blood 6.6 g/dL (6.4-8.2)
--- NOTE | 2023-07-28 11:08 | NUR ---
Pt. is sitting iin a recliner. Spouse is present and welcomes my visit. Pt. displayed eveidence of recognizing this water mangle tender's voice, and opened her jeffrey and verbalized "it is so good to see you." Pt. dislpayed some evidence of somnolence, so life review is facilitated with the spouse. Prayed with the Pt. Spouse verbalized gratitude and welcomed this water mangle tender to return.
--- NOTE | 2023-07-28 12:22 | NUR ---
TRANSFER NOTE PT LETHARGIC, RESPONDING WITH YES OR NO SOMETIMES. PT ABLE TO GET UP TO CHAIR W/ OT THIS MORNING, VERY HEAVY ASSIST, DIFFICULTY FOLLOWING COMMANDS. PT WORKED W/ SPEECH, ABLE TO TAKE PILLS CRUSHED IN APPLESAUCE. SP02>90% ON RA. NO TELE. PT MOANING WHILE IN CHAIR, TYLENOL GIVEN PER EMAR. PT NOW IN BED, NO LONGER MOANING. PT HAS NOT VOIDED YET THIS SHIFT. NO BM THIS SHIFT SO FAR. Q2H REPOSITIONING. ORAL CARE DIFFICULT D/T NOT FOLLOWING COMMANDS. PALLIATIVE RN IN ROOM TALKING TO . PTS BROTHER NOW IN ROOM WELL. CALL LIGHT IN REACH. REPORT GIVEN TO MEDICAL FLOOR RN, TRANSFERRING TO ROOM 312
--- NOTE | 2023-07-28 13:20 | NUR ---
TRANSFER RECEIVED REPORT FROM AJ OMER. ASSUMED CARE AT 1320. PATIENT'S LETHARGIC AND MOANING. , BROTHER AND SISTER IN LAW AT BEDSIDE. FESTUS OMER WITH PATIENT AND FAMILY DISCUSSING PALIATIVE CARE. BED IN LOWEST POSITION AND CALL LIGHT IS WITHIN REACH.
--- NOTE | 2023-07-28 16:19 | NUR ---
Met with pt's spouse and brother at the bedside, then moved the conversation to the hallway. Due to the patient's worsening condition, they decided to change pt's code status to DNR, and begin comfort care. Dr. Key in agreement with this decision. Pt unable to make her needs or wants known at this time. However, she does appear to be having pain, as she is frequently moaning and crying out, holding her rib area. Roxanol ordered.
--- NOTE | 2023-07-28 16:47 | NUR ---
SHIFT SUMMARY PATIENT LETHARGIC AND SPORADICALLY ALERT. ORIENTED TO SELF AND FAMILY. MOANS WITH PAIN, BUT UNABLE TO VERBALIZE LOCATION MOST OF THE TIME. CODE STATUS CHANGED TO DNR AND PATIENT PLACED ON COMFORT CARE MEASURES. IV FLUIDS STOPPED PER ORDERS. 14F SOLIMAN CATHETER PLACED USING STERILE PROCEDURE. YELLOW FLASH OF URINE OBTAINED. BALLOON INFLATED. PATIENT NOTED TO BE UNCOMFORTABLE BUT TOLERATED WELL. PATIENT'S AT BEDSIDE. BED IN LOWEST POSITION. CALL LIGHT WITHIN REACH.
--- NOTE | 2023-07-29 04:41 | NUR ---
SHIFT SUMMARY PATIENT ON COMFORT CARE. ALERT TO SELF AND MOANS AT TIMES. PRESENT FIRST FEW HOURS OF SHIFT. LETHARGIC T/O SHIFT AND BEDREST. SOLIMAN PATENT AND DRAINING TO GRAVITY. REFUSED NIGHT O2 2L NC. PO ATIVAN 1 MG GIVEN FOR ANXIETY X ONE. NO S/SX OF PAIN, SOB, AND N/V. CALL LIGHT IN REACH. BED IN LOWEST POSITION AND ALARM ACTIVATED. WILL CONTINUE TO MONITOR UNTIL DAY SHIFT NURSE ASSUMES CARE.
--- NOTE | 2023-07-29 18:40 | NUR ---
SHIFT SUMMARY- PT SLEPT MOST OF THIS SHIFT. FAMILY WAS AT BEDSIDE FOR MOST OF THIS SHIFT. SHE WAS NOT SAFE TO TAKE HER MORNING MEDICATIONS DUE TO LETHERGY. THIS EVENING SHE WOKE UP A BIT MORE AND ATE SOME OF HER DINNER. HER BED IS IN THE LOW POSITON AND CALL LIGHT IS WITHIN REACH.
--- NOTE | 2023-07-30 03:35 | NUR ---
END OF SHIFT SUMMARY PT SLEPT WELL OVERNIGHT, NO EVENTS. PT REPOSITIONED Q2 HOURS FOR COMFORT. PT RECEIVED PO ROXANOL FOR PAIN MANAGEMENT. AT BEDSIDE AT BEGINNING OF SHIFT. PT ATE 25% OF DINNER TRAY. FLUIDS ENCOURAGED. PT A&O x1-2. PT ON RA. 0335: PT APPEARS TO BE RESTING COMFORTABLY, EYES ARE CLOSED, RESP RATE EVEN AND UNLABORED. FREQUENT SAFETY CHECKS COMPLETED OVERNIGHT. CALL LIGHT WITHIN REACH, WCTM.
--- NOTE | 2023-07-30 19:09 | NUR ---
SHIFT SUMMARY: PT ORIENTED TO SELF AND PERSON. PLEASANT WHEN AWAKE BUT HAS BEEN VERY LETHARGIC THIS SHIFT. PT WILL WAKE FOR A FEW MINUTES TO STATE SHE IS THIRSTY AND WANTING FOOD THEN WILL FALL BACK ASLEEP PRIOR TO TASKS COMPLETED. MED NOT GIVEN THIS AM D/T ASPIRATION RISK. MEPILEX APPLIED TO BLANCHABLLE REDNESS ON BUTTOCK. FAMILY AT BEDSIDE THROUGHOUT SHIFT. CALL LIGHT IN REACH. BED IN LOWEST POSITION. COMFORT CARE ASSESSMENTS COMPLETED. SLEEPING COMFORTABLY AT THIS TIME.
--- NOTE | 2023-07-31 04:51 | NUR ---
END OF SHIFT SUMMARY COMFORT CARE MEASURES COMPLETED THROUGHOUT THE SHIFT. PT SLEPT PEACEFULLY. Q2 TURNS/REPOSITIONING. PRN PAIN MEDICATION ROXANOL GIVEN x1. PT PLEASANT AND COOPERATIVE WITH CARE PROVIDED. PT ABLE TO TAKE MEDICATIONS AT BEDTIME. PT KEPT EYES OPEN ENOUGH TO TAKE 2100 MEDS. MEDICATION CRUSHED IN PUDDING. PINK FOAM HEEL PROTECTORS PLACED TO PREVENT SKIN BREAKDOWN TO PT'S FEET. BILAT HEELS SLIGHTLY PINK BUT BLANCHABLE. PT RESPONSES TO HER NAME, AND OCCASSIONALLY GIGGLE OUT LOUD. CALL LIGHT WITHIN REACH, WCTM.
--- NOTE | 2023-07-31 14:36 | NUR ---
"Spiritual Care | Comfort Care Support. Pts. QUEENIE Kapoor is present at bedside and welcomes my visit. Pt. is on comfort care and is mostly non responsive. Facilitated an extended life review with SO and established rapport. Prayed with Pt. QUEENIE verbalized gratitude for the spiritual care visit."
--- NOTE | 2023-07-31 15:14 | NUR ---
MET WITH JOSHUA AND HER SPOUSE. HE REPORTED THAT SHE HAS SEEMED VERY COMFORTABLE. SHE WAS RESTING. HER SPOUSE DISCUSSED HER CARE AFTER SHE LEFT THE HOSPITAL, TALKED ABOUT PATIENT GOING WITH HER BROTHER. SPOUSE REMINISING ABOUT LIFE TOGETHER. THERAPUTIC VISIT.
--- NOTE | 2023-07-31 17:51 | NUR ---
SHIFT SUMMARY PT SLOW TO RESPOND AND DOES NOT RESPOND TO VERBAL STIMULI AT TIMES T/O SHIFT. PT WAS UNABLE TO TOLERATE PO INTAKE AND POCKETED FOOD AND WAS UNABLE TO CHEW DESPITE COACHING. PT APPEARED TO REST COMFORTABLY FOR MOST OF SHIFT AND THEN BEGAN TO APPEAR UNCOMFORTABLE TOWARDS THE END OF SHIFT AND WAS MEDICATED PER EMAR. CALL LIGHT WITHIN REACH, BUT PT NOT ABLE TO VERBALIZE NEEDS AT THIS TIME.
--- NOTE | 2023-08-01 04:22 | NUR ---
SHIFT SUMMARY PT HAS BEEN ASLEEP ALL NIGHT. PT HAS NOT REQUIRED ANY TYPE OF PAIN MEDICATION THIS SHIFT. I DID NOT GIVE PT HER NIGHT MED DAY SHIFT RN STATED THAT PT HAD BEEN HAVING A DIFFICULT TIME SWALLOWING RECENTLY. PT HAS CALL LIGHT NEAR. WILL CONTINUE TO MONITOR HER UNTIL THE NEXT SHIFT ARRIVES.
--- NOTE | 2023-08-01 18:12 | NUR ---
SHIFT SUMMARY PT ON COMFORT CARE. SIGNIFICANT OTHER AT BEDSIDE FOR MOST THE DAY. REQUESTING [facility] OF THE [facility] IN [place] IF SHE PASSES. PT MEDICATED TWICE THIS SHIFT FOR PAIN AND ONCE FOR ANXIETY. PT APPEARS TO BE RESTING EASY WITH BREATHS UNLABORED AT THIS TIME. PT NOT EATING. AROUSABLE TO VERBAL STIMULI FOR SHORT PERIODS OF TIME. NO OTHER ACUTE CHANGES IN ASSESSMENT AT THIS TIME.
--- NOTE | 2023-08-02 06:22 | NUR ---
SHIFT SUMMARY NO ACUTE CHANGES TO PT STATUS. WILL CONTINUE TO MONITOR UNTIL NEXT SHIFT ARRIVES.
--- NOTE | 2023-08-02 07:20 | NUR ---
ASSUMED CARE: PT RESTING QUIETLY AT THIS TIME. NO ACUTE NEEDS OR DISTRESS IDENTIFIED.
--- NOTE | 2023-08-02 18:06 | NUR ---
SHIFT SUMMARY: PT RESTING IN BED THIS SHIFT. HAS NOT REQUIRED MEDICATING. REPOSITIONING Q2. AT BEDSIDE MAJORITY OF SHIFT. PLAN IS TO DC HOME ON HOSPICE NEXT WEEK. NO ACUTE NEEDS OR CONCERNS AT THIS TIME.
--- NOTE | 2023-08-03 03:43 | NUR ---
0320 WENT IN TO CHECK ON PT AND READJUST HER IN BED. PT HAD . 2ND RN CHECK WITH MIKE ASCENCIO RN. CALLED PT'S S/O. HE WILL BE IN SHORTLY. ATTEMPTED TO CALL PT'S BROTHER, BUT NO ANSWER. LEFT A MESSAGE FOR HIM TO CALL [facility]. DR MARIE NOTIFIED. IV AND SOLIMAN REMOVED. PT PLACED IN YELLOW GOWN. [facility].
--- NOTE | 2023-08-03 04:57 | NUR ---
FAMILY HAS LEFT THE PT ROOM AND STATE THAT IT IS OK TO CALL [facility] THE [facility].
--- NOTE | 2023-08-03 06:49 | NUR ---
DENILSON FROM [facility] TO ROOM TO OCCUPATIONAL THERAPY SUPERVISOR
== END 2023-08-03 03:20 | DRG 871 ==
LOC: ER 13:11 → PCU 17:24 → MEDS 17:24 → PCU 07-24 11:11 → MEDS 07-28 13:23
PROVIDERS: Emergency Medicine; Internal Medicine; Student in an Organized Health Care Education/Training Program; ADMIT Hospitalist
PROC: 3E03329 Introduction of Other Anti-infective into Peripheral Vein, Percutaneous Approach (ICD-10-PCS; principal; 2023-07-21)
PROC: B2111ZZ Fluoroscopy of Multiple Coronary Arteries using Low Osmolar Contrast (ICD-10-PCS; 2023-07-24)
DX: A41.53 Sepsis due to Serratia (principal); G93.41 Metabolic encephalopathy; I21.A1 Myocardial infarction type 2; I50.23 Acute on chronic systolic (congestive) heart failure; J18.9 Pneumonia, unspecified organism; J96.01 Acute respiratory failure with hypoxia; N17.0 Acute kidney failure with tubular necrosis; I42.0 Dilated cardiomyopathy; E87.1 Hypo-osmolality and hyponatremia; E44.0 Moderate protein-calorie malnutrition; Z68.1 Body mass index [BMI] 19.9 or less, adult; Z51.5 Encounter for palliative care; Z66 Do not resuscitate; A41.89 Other specified sepsis; A41.01 Sepsis due to Methicillin susceptible Staphylococcus aureus; I12.9 Hypertensive chronic kidney disease with stage 1 through stage 4 chronic kidney disease, or unspecified chronic kidney disease; N18.30 Chronic kidney disease, stage 3 unspecified; I27.20 Pulmonary hypertension, unspecified; G43.909 Migraine, unspecified, not intractable, without status migrainosus; I08.3 Combined rheumatic disorders of mitral, aortic and tricuspid valves; I25.10 Atherosclerotic heart disease of native coronary artery without angina pectoris; K21.9 Gastro-esophageal reflux disease without esophagitis; M81.0 Age-related osteoporosis without current pathological fracture; E78.5 Hyperlipidemia, unspecified; L89.152 Pressure ulcer of sacral region, stage 2; R62.7 Adult failure to thrive; Z87.11 Personal history of peptic ulcer disease; Z87.891 Personal history of nicotine dependence; Z11.52 Encounter for screening for COVID-19
CPT/HCPCS: 0241U; 36415; 51702; 51798; 70450; 71046; 76705; 76937; 80048; 80053; 81003; 83605; 83735; 83880; 84443; 84484; 85025; 85027; 85520; 85610; 85730; 87040; 87070; 87077; 87186; 87205; 92526; 92610; 93005; 93010; 93306; 93454; 94640; 94664; 94760; 94762; 96365; 96375; 96376; 97110; 97162; 97165; 97530; 97535; 99285-25; A9270; C1760; C1769; C1887; C1894; J0696; J1644; J1650; J1940; J2250; J3010; J7030; J7040; J7050; J7626; Q9967